=== PATIENT | male | born 1960 | race Hispanic/Latino ===

== ENCOUNTER 2019-01-08 23:30 | Inpatient (IN) | payer OTHER ==
[~2019-01-08] VITALS: Ht 157.5 cm; Wt 82.8 kg
[~2019-01-08 23:30] MED LIST: CALCIUM CHLORIDE 100 MG/ML 10 ML SYG IVP ONE; HEPARIN SODIUM 10000 UNIT/ML 1ML VIAL IJ ONE; PHENYLEPHRINE HCL 10 MG/ML 1ML VIAL IV ONE
[2019-01-08] MEDS ORDERED: SODIUM CHLORIDE 0.9% 1000ML 1,000 ML IV ONE (23:50)
[2019-01-08] MEDS ORDERED: ASPIRIN 325 MG TABLET ONE (23:50)
[2019-01-09] LABS: BASOPHILS % (AUTO) 0.8 % (0.0-5.0); EOSINOPHILS % (AUTO) 1.4 % (0.0-8.0); HEMATOCRIT 42.8 % (42-54); LYMPHOCYTES % (AUTO) 35.8 % (21.0-51.0); MEAN CORPUSCULAR HEMOGLOBIN 29.4 pg (27.0-33.0); MEAN CORPUSCULAR HGB CONC 32.8 g/dL (32.0-36.0); MEAN CORPUSCULAR VOLUME 89.4 fL (79-99); MONOCYTES % (AUTO) 14.4 % (3.0-13.0); NEUTROPHILS % (AUTO) 47.6 % (40.0-77.0); NUCLEATED RED BLOOD CELLS 0.1 % (0.0-0.19); PLATELET COUNT (AUTO) 148 K/uL (130-400); RED BLOOD CELL COUNT(AUTO) 4.79 MIL/uL (4.50-6.20); RED CELL DISTRIBUTION WIDTH 13.5 % (11.0-15.5); WHITE BLOOD COUNT (AUTO) 4.3 K/uL (4.8-10.8)
[2019-01-09 00:11] LABS: POTASSIUM 4.2 mmol/L (3.5-5.1)
[2019-01-09 00:15] LABS: ALBUMIN 3.6 g/dL (3.5-5.0); BILIRUBIN,TOTAL 0.7 mg/dL (0.2-1.0); TOTAL PROTEIN, SERUM 8.1 g/dL (6.0-8.3)
[2019-01-09 00:25] LABS: INR 1.02 (0.85-1.15); PARTIAL THROMBOPLASTIN TIME 25.8 SEC (26.3-35.5); PROTHROMBIN TIME 10.7 SEC (9.6-11.6)
[2019-01-09 00:33] LABS: MAGNESIUM 1.8 mg/dL (1.80-2.40); PHOSPHORUS 3.5 mg/dL (2.5-4.9)
[2019-01-09] MEDS ORDERED: IOHEXOL 350 MG/ML 100ML INFUS..BTL IV ONE (01:29)
[2019-01-09] MEDS: SODIUM CHLORIDE 0.9% 1000ML 1,000 ML IV SCH ×3 (03:08→21:04)
[2019-01-09] MEDS ORDERED: NITROGLYCERIN 0.4 MG SL TAB SL PRN (03:15)
[2019-01-09] MEDS ORDERED: ACETAMINOPHEN 325 MG TAB PO PRN ×2 (03:15)
[2019-01-09] MEDS ORDERED: GLUCAGON 1MG KIT 1 MG ML IM PRN (03:15)
[2019-01-09] MEDS ORDERED: ONDANSETRON HCL 4 MG/2 ML VIAL IV PRN (03:15)
[2019-01-09] MEDS ORDERED: DEXTROSE 50%-WATER 50 ML DISP.SYRIN IV PRN (03:15)
[2019-01-09] MEDS ORDERED: ENOXAPARIN SODIUM 40 MG/0.4 ML SYRINGE SQ ONE (03:41)
[2019-01-09] MEDS ORDERED: POTASSIUM CHLORIDE 10% ELIXIR 20 MEQ/15 ML UDCUP PO PRN (03:45)
[2019-01-09] MEDS ORDERED: MAGNESIUM 2GM PREMIX 50ML 50 ML IV PRN (03:45)
[2019-01-09] MEDS ORDERED: LIDOCAINE HCL-MPF 1% 2ML VIAL IVP PRN (03:45)
[2019-01-09] MEDS ORDERED: POTASSIUM CHLORIDE 20MEQ/100ML 100 ML IV PRN (03:45)
[2019-01-09] MEDS ORDERED: IPRATROPIUM/ALBUTEROL SULFATE 3 ML SOLUTION IH ONE ×3 (06:13→14:23)
[2019-01-09 06:44] LABS: BASOPHILS % (AUTO) 0.5 % (0.0-5.0); EOSINOPHILS % (AUTO) 1.1 % (0.0-8.0); HEMATOCRIT 40.7 % (42-54); LYMPHOCYTES % (AUTO) 47.9 % (21.0-51.0); MEAN CORPUSCULAR HEMOGLOBIN 29.2 pg (27.0-33.0); MEAN CORPUSCULAR VOLUME 88.7 fL (79-99); MONOCYTES % (AUTO) 12.8 % (3.0-13.0); NEUTROPHILS % (AUTO) 37.7 % (40.0-77.0); NUCLEATED RED BLOOD CELLS 0.1 % (0.0-0.19); PLATELET COUNT (AUTO) 132 K/uL (130-400); RED BLOOD CELL COUNT(AUTO) 4.59 MIL/uL (4.50-6.20); RED CELL DISTRIBUTION WIDTH 14.1 % (11.0-15.5); WHITE BLOOD COUNT (AUTO) 3.5 K/uL (4.8-10.8)
[2019-01-09 06:54] LABS: APPEARANCE,URINE Clear (CLEAR); BILIRUBIN,URINE Negative (NEGATIVE); COLOR,URINE Dark Yellow (YELLOW); GLUCOSE, URINE (UA) Negative (NEGATIVE); KETONES,URINE Trace mg/dL (NEGATIVE); LEUKOCYTE ESTERASE ,URINE Negative (NEGATIVE); NITRATE,URINE Negative (NEGATIVE); OCCULT BLOOD,URINE Negative (NEGATIVE); PROTEIN,URINE POS 2+ (NEGATIVE)
[2019-01-09 07:01] LABS: AMPHET/METH SCREEN,URINE NEGATIVE (NEGATIVE); BARBITURATE SCREEN, URINE NEGATIVE (NEGATIVE); BENZODIAZEPINES SCREEN,URINE NEGATIVE (NEGATIVE); CANNABINOID SCREEN,URINE NEGATIVE (NEGATIVE); COCAINE SCREEN,URINE NEGATIVE (NEGATIVE); OPIATE SCREEN,URINE NEGATIVE (NEGATIVE); PHENCYCLIDINE SCREEN,URINE NEGATIVE (NEGATIVE)
[2019-01-09 07:02] LABS: RBC,URINE 0-1 /HPF (0-1); WBC,URINE 0-1 /HPF (0-1)
[2019-01-09 07:03] LABS: BACTERIA,URINE Rare /HPF (None Seen); MUCUS,URINE Few LPF (None Seen); SQUAMOUS EPITHELIAL CELL,UR Rare /HPF (0-2)
[2019-01-09 07:08] LABS: ALBUMIN 3.2 g/dL (3.5-5.0); BILIRUBIN,TOTAL 0.6 mg/dL (0.2-1.0); CREATININE 0.8 mg/dL (0.5-1.5); MAGNESIUM 1.8 mg/dL (1.80-2.40); POTASSIUM 3.4 mmol/L (3.5-5.1); TOTAL PROTEIN, SERUM 7.2 g/dL (6.0-8.3); TROPONIN I 0.44 ng/mL (0.00-0.06)
[2019-01-09 07:14] LABS: HEMOGLOBIN A1C 7.7 % (4.0-6.0)
[2019-01-09] MEDS: INSULIN HUMULIN R 100 UNIT/ML 3ML SQ SCH ×4 (07:30→21:00)
[2019-01-09] MEDS ORDERED: ENOXAPARIN SODIUM 30 MG/0.3 ML SQ ONE (08:39)
[2019-01-09] MEDS ORDERED: ASPIRIN 325 MG TABLET ONE (08:39)
[2019-01-09] MEDS ORDERED: FAMOTIDINE 20MG TAB 20 MG TAB ONE (08:39)
[2019-01-09] MEDS ORDERED: POTASSIUM CHLORIDE 20 MEQ ERTAB PO ONE ×2 (08:39→13:53)
[2019-01-09] MEDS ORDERED: MAGNESIUM 2GM PREMIX 50ML 50 ML IV ONE (08:40)
[2019-01-09] MEDS: ASPIRIN 325 MG TABLET PO SCH (09:00)
[2019-01-09] MEDS: ENOXAPARIN SODIUM 30 MG/0.3 ML SQ SCH (09:00)
[2019-01-09] MEDS: FAMOTIDINE 20MG TAB 20 MG TAB PO SCH ×2 (09:00→21:01)
[2019-01-09] MEDS: IPRATROPIUM/ALBUTEROL SULFATE 3 ML SOLUTION IH SCH ×4 (09:50→21:29)
[2019-01-09] MEDS ORDERED: AMOX500C2 PO (10:16)
[2019-01-09] MEDS ORDERED: METF-445 PO (10:16)
[2019-01-09] MEDS ORDERED: GUAI177L20 PO (10:16)
[2019-01-09 11:51] LABS: TROPONIN I 0.38 ng/mL (0.00-0.06)
[2019-01-09 15:20] VITALS: BP 124/72
[2019-01-09 19:00] VITALS: BP_SYST 111; BP_SYST 113; BP_SYST 115; BP_DIAS 69; BP_DIAS 79; BP_DIAS 80
[2019-01-09 23:00] VITALS: BP 91/47
[2019-01-10] MEDS: IPRATROPIUM/ALBUTEROL SULFATE 3 ML SOLUTION IH SCH ×6 (01:37→21:53)
[2019-01-10 03:00] VITALS: BP 120/68
[2019-01-10 05:13] LABS: BASOPHILS % (AUTO) 0.6 % (0.0-5.0); EOSINOPHILS % (AUTO) 0.3 % (0.0-8.0); HEMATOCRIT 38.4 % (42-54); LYMPHOCYTES % (AUTO) 33.9 % (21.0-51.0); MEAN CORPUSCULAR HEMOGLOBIN 29.6 pg (27.0-33.0); MEAN CORPUSCULAR HGB CONC 33.5 g/dL (32.0-36.0); MEAN CORPUSCULAR VOLUME 88.6 fL (79-99); MONOCYTES % (AUTO) 10.9 % (3.0-13.0); NEUTROPHILS % (AUTO) 54.3 % (40.0-77.0); PLATELET COUNT (AUTO) 139 K/uL (130-400); RED BLOOD CELL COUNT(AUTO) 4.33 MIL/uL (4.50-6.20); RED CELL DISTRIBUTION WIDTH 14.2 % (11.0-15.5); WHITE BLOOD COUNT (AUTO) 5.1 K/uL (4.8-10.8)
[2019-01-10 05:30] LABS: BILIRUBIN,TOTAL 0.7 mg/dL (0.2-1.0); CREATININE 0.8 mg/dL (0.5-1.5); POTASSIUM 3.7 mmol/L (3.5-5.1); TOTAL PROTEIN, SERUM 6.9 g/dL (6.0-8.3)
[2019-01-10] MEDS: INSULIN HUMULIN R 100 UNIT/ML 3ML SQ SCH ×4 (06:24→21:00)
[2019-01-10 08:00] VITALS: BP 110/67
[2019-01-10] MEDS: ASPIRIN 325 MG TABLET PO SCH (09:22)
[2019-01-10] MEDS: FAMOTIDINE 20MG TAB 20 MG TAB PO SCH ×2 (09:23→22:17)
[2019-01-10] MEDS: ENOXAPARIN SODIUM 30 MG/0.3 ML SQ SCH (09:23)
[2019-01-10 12:00] VITALS: BP_SYST 109; BP_SYST 111; BP_SYST 113; BP_DIAS 70; BP_DIAS 73; BP_DIAS 75
--- NOTE | 2019-01-10 13:54 | NUR ---
DC PLAN VISITED WITH PATIENT. PATIENT LIVES WITH SPOUSE. INDEPENDENT ABLE TO PERFORM ADL'S. PATIENT HAS NO SERVICES OR DME'S. FEELS SAFE TO RETURN HOME. Addendum: 01/10/19 at 1356 by NGOC RENDON RN CM Amended: Links added.
[2019-01-10 16:00] VITALS: BP 113/73
[2019-01-10] MEDS: AZITHROMYCIN 500MG+NS 250ML 250 ML IV SCH (16:02)
[2019-01-10] MEDS: OSELTAMIVIR PHOSPHATE 75 MG CAP PO SCH ×2 (16:02→22:17)
[2019-01-10] MEDS: ISOSORBIDE MONO 30MG TAB SR PO SCH (18:03)
[2019-01-10 19:20] VITALS: BP 128/77
[2019-01-10 19:22] VITALS: BP 128/77
[2019-01-10] MEDS: ATORVASTATIN CALCIUM 10 MG TABLET PO SCH (22:16)
[2019-01-11] VITALS (7 sets, daily range): BP systolic 95–139; BP diastolic 51–78
[2019-01-11] MEDS: IPRATROPIUM/ALBUTEROL SULFATE 3 ML SOLUTION IH SCH ×6 (01:16→21:35)
[2019-01-11 04:26] LABS: MEAN CORPUSCULAR HEMOGLOBIN 29.3 pg (27.0-33.0); MEAN CORPUSCULAR HGB CONC 32.9 g/dL (32.0-36.0); PLATELET COUNT (AUTO) 133 K/uL (130-400); RED BLOOD CELL COUNT(AUTO) 4.27 MIL/uL (4.50-6.20); RED CELL DISTRIBUTION WIDTH 13.8 % (11.0-15.5); WHITE BLOOD COUNT (AUTO) 5.6 K/uL (4.8-10.8)
[2019-01-11 04:39] LABS: ALBUMIN 2.8 g/dL (3.5-5.0); BILIRUBIN,TOTAL 0.7 mg/dL (0.2-1.0); CREATININE 0.9 mg/dL (0.5-1.5); POTASSIUM 3.3 mmol/L (3.5-5.1); TOTAL PROTEIN, SERUM 6.5 g/dL (6.0-8.3)
[2019-01-11] MEDS: INSULIN HUMULIN R 100 UNIT/ML 3ML SQ SCH ×4 (06:11→21:00)
[2019-01-11] MEDS ORDERED: ASPIRIN 325 MG TABLET PO SCH (09:00)
[2019-01-11] MEDS: CLOPIDOGREL BISULFATE 75 MG TAB PO SCH (09:25)
[2019-01-11] MEDS: ASPIRIN 81MG TAB.CHEW PO SCH (09:25)
[2019-01-11] MEDS: OSELTAMIVIR PHOSPHATE 75 MG CAP PO SCH ×3 (09:25→21:13)
[2019-01-11] MEDS: ISOSORBIDE MONO 30MG TAB SR PO SCH (09:26)
[2019-01-11] MEDS: FAMOTIDINE 20MG TAB 20 MG TAB PO SCH ×2 (09:26→21:11)
[2019-01-11] MEDS: ENOXAPARIN SODIUM 30 MG/0.3 ML SQ SCH (09:27)
[2019-01-11] MEDS: LISINOPRIL 5 MG TABLET PO SCH (13:19)
[2019-01-11] MEDS: CARVEDILOL 3.125 MG TABLET PO SCH ×2 (13:20→21:12)
[2019-01-11] MEDS: FUROSEMIDE 10 MG/ML 2ML VIAL IV SCH ×2 (13:21→21:12)
[2019-01-11] MEDS: SPIRONOLACTONE 25 MG TAB PO SCH (13:21)
[2019-01-11] MEDS: AZITHROMYCIN 500MG+NS 250ML 250 ML IV SCH (13:23)
--- NOTE | 2019-01-11 16:15 | NUR ---
[facility] Order received for [facility] [employer] @ [place]. Spoke w pt regarding MD recommendations. CROW/PC consents signed. Clinical and order faxed to Radha, call placed to Seema Carrero rep. pending call back.
[2019-01-11] MEDS: ATORVASTATIN CALCIUM 10 MG TABLET PO SCH (21:13)
[2019-01-12 00:51] VITALS: BP 97/69
[2019-01-12] MEDS: IPRATROPIUM/ALBUTEROL SULFATE 3 ML SOLUTION IH SCH ×6 (02:15→22:04)
[2019-01-12 04:40] VITALS: BP 99/67
[2019-01-12] MEDS: INSULIN HUMULIN R 100 UNIT/ML 3ML SQ SCH ×4 (07:30→21:00)
[2019-01-12 08:00] VITALS: BP 105/66
[2019-01-12 08:26] LABS: HEMATOCRIT 41.7 % (42-54); MEAN CORPUSCULAR HEMOGLOBIN 29.3 pg (27.0-33.0); MEAN CORPUSCULAR HGB CONC 33.3 g/dL (32.0-36.0); MEAN CORPUSCULAR VOLUME 88.2 fL (79-99); PLATELET COUNT (AUTO) 176 K/uL (130-400); RED BLOOD CELL COUNT(AUTO) 4.73 MIL/uL (4.50-6.20); RED CELL DISTRIBUTION WIDTH 13.8 % (11.0-15.5); WHITE BLOOD COUNT (AUTO) 6.2 K/uL (4.8-10.8)
[2019-01-12] MEDS: ISOSORBIDE MONO 30MG TAB SR PO SCH (08:32)
[2019-01-12] MEDS: FAMOTIDINE 20MG TAB 20 MG TAB PO SCH ×2 (08:32→21:33)
[2019-01-12] MEDS: CARVEDILOL 3.125 MG TABLET PO SCH ×2 (08:32→21:33)
[2019-01-12] MEDS: ASPIRIN 81MG TAB.CHEW PO SCH (08:32)
[2019-01-12] MEDS: LISINOPRIL 5 MG TABLET PO SCH (08:32)
[2019-01-12] MEDS: ENOXAPARIN SODIUM 30 MG/0.3 ML SQ SCH (08:33)
[2019-01-12] MEDS: OSELTAMIVIR PHOSPHATE 75 MG CAP PO SCH ×3 (08:33→21:33)
[2019-01-12] MEDS: CLOPIDOGREL BISULFATE 75 MG TAB PO SCH (08:33)
[2019-01-12 08:49] LABS: CREATININE 0.7 mg/dL (0.5-1.5); POTASSIUM 3.5 mmol/L (3.5-5.1)
--- NOTE | 2019-01-12 10:34 | NUR ---
[employer] UPDATE Received callback from Seema patel for [employer]. She mentions that since pt is self pay, he would have to give a $500.00 down payment for rental. Per Seema she will call pt to discuss. Primary nurse updated. Will continue to follow. Pt is scheduled for [facility] tomorrow.
[2019-01-12 12:00] VITALS: BP 97/58
[2019-01-12] MEDS: SPIRONOLACTONE 25 MG TAB PO SCH (12:20)
[2019-01-12 16:00] VITALS: BP 111/70
[2019-01-12] MEDS: AZITHROMYCIN 250 MG TABLET PO SCH (17:05)
[2019-01-12 19:30] VITALS: BP 97/61
[2019-01-12] MEDS: ATORVASTATIN CALCIUM 10 MG TABLET PO SCH (21:33)
[2019-01-12] MEDS: POTASSIUM CHLORIDE 20 MEQ ERTAB PO PRN ×2 (21:44→23:35)
[2019-01-13] VITALS (11 sets, daily range): BP systolic 99–120; BP diastolic 56–83
[2019-01-13] MEDS: IPRATROPIUM/ALBUTEROL SULFATE 3 ML SOLUTION IH SCH ×6 (01:58→22:01)
[2019-01-13] MEDS: INSULIN HUMULIN R 100 UNIT/ML 3ML SQ SCH ×4 (05:57→20:52)
[2019-01-13 06:25] LABS: CREATININE 0.8 mg/dL (0.5-1.5); POTASSIUM 3.8 mmol/L (3.5-5.1)
[2019-01-13 06:38] LABS: INR 0.99 (0.85-1.15); PARTIAL THROMBOPLASTIN TIME 29.5 SEC (26.3-35.5); PROTHROMBIN TIME 10.4 SEC (9.6-11.6)
[2019-01-13 06:41] LABS: B-TYPE NATRIURETIC PEPTIDE 1320 pg/mL (0-100)
[2019-01-13] MEDS ORDERED: BIVALIRUDIN 250 MG/VIAL IV ONE (07:22)
[2019-01-13] MEDS ORDERED: IOHEXOL-350 50ML VIAL IV ONE (07:23)
[2019-01-13] MEDS ORDERED: IOHEXOL 350 MG/ML 100ML INFUS..BTL IV ONE (07:23)
[2019-01-13] MEDS ORDERED: NITROGLYCERIN 5 MG/ML 10 ML VIAL IV ONE (07:23)
[2019-01-13] MEDS ORDERED: LIDOCAINE HCL 2% 20ML ONE (07:24)
[2019-01-13] MEDS ORDERED: MIDAZOLAM HCL 1 MG/ML 2ML VIAL ONE (08:16)
[2019-01-13] MEDS: SPIRONOLACTONE 25 MG TAB PO SCH (08:28)
[2019-01-13] MEDS: OSELTAMIVIR PHOSPHATE 75 MG CAP PO SCH ×3 (08:28→21:41)
[2019-01-13 08:50] LABS: BASOPHILS % (AUTO) 0.3 % (0.0-5.0); EOSINOPHILS % (AUTO) 2.6 % (0.0-8.0); HEMATOCRIT 41.6 % (42-54); LYMPHOCYTES % (AUTO) 41.3 % (21.0-51.0); MEAN CORPUSCULAR HEMOGLOBIN 29.7 pg (27.0-33.0); MEAN CORPUSCULAR HGB CONC 33.5 g/dL (32.0-36.0); MEAN CORPUSCULAR VOLUME 88.6 fL (79-99); MONOCYTES % (AUTO) 11.6 % (3.0-13.0); NEUTROPHILS % (AUTO) 44.2 % (40.0-77.0); NUCLEATED RED BLOOD CELLS 0.1 % (0.0-0.19); PLATELET COUNT (AUTO) 190 K/uL (130-400); RED CELL DISTRIBUTION WIDTH 13.9 % (11.0-15.5); WHITE BLOOD COUNT (AUTO) 6.2 K/uL (4.8-10.8)
[2019-01-13] MEDS ORDERED: FUROSEMIDE 10 MG/ML 2ML VIAL ONE (08:53)
[2019-01-13] MEDS: CARVEDILOL 6.25 MG TABLET PO SCH ×2 (09:00→21:41)
[2019-01-13] MEDS: ASPIRIN 81MG TAB.CHEW PO SCH (09:00)
[2019-01-13] MEDS: FUROSEMIDE 20 MG TABLET PO SCH (09:00)
[2019-01-13] MEDS: FAMOTIDINE 20MG TAB 20 MG TAB PO SCH ×2 (09:00→21:42)
[2019-01-13] MEDS: LISINOPRIL 5 MG TABLET PO SCH (09:00)
[2019-01-13] MEDS: ISOSORBIDE MONO 30MG TAB SR PO SCH (09:00)
--- NOTE | 2019-01-13 09:30 | NUR ---
PATIENT RETURNED FROM [facility]. AWAKE AND ALERT, VOICES NO COMPLAINTS. RIGHT PERCLOSE TO GROIN - CLEAN DRY AND INTACT. NO SIGNS AND SYMPTOMS OF BLEEDING NOTED. NO PAIN OR DISCOMFORT. POSITIVE PULSES TO LOWER EXTREMITIES
[2019-01-13] MEDS ORDERED: AZITHROMYCIN 500MG+NS 250ML 250 ML IV SCH (10:00)
[2019-01-13] MEDS: AZITHROMYCIN 250 MG TABLET PO SCH (11:37)
[2019-01-13] MEDS: POTASSIUM CHLORIDE 20 MEQ ERTAB PO SCH ×2 (11:37→21:41)
--- NOTE | 2019-01-13 20:00 | NUR ---
ANXIOUS Pt is anxious,awaiting for Dr Rivas to round.Pt has questions re surgical options.Pt denies chest pain or sob.
[2019-01-13] MEDS: ATORVASTATIN CALCIUM 10 MG TABLET PO SCH (21:41)
--- NOTE | 2019-01-13 21:52 | NUR ---
OBEY gomez,pt wants medicine for his cough.
[2019-01-13] MEDS: GUAIFENESIN-CODEINE 5 ML SYRUP PO PRN (22:55)
--- NOTE | 2019-01-13 22:59 | NUR ---
COUGH Pt medicated with Guiafenessin with Codeine for cough.
--- NOTE | 2019-01-14 01:00 | NUR ---
MED EFFECT Pt was able to sleep well.
[2019-01-14] MEDS: IPRATROPIUM/ALBUTEROL SULFATE 3 ML SOLUTION IH SCH ×6 (01:38→22:32)
[2019-01-14 03:00] VITALS: BP 109/61
[2019-01-14 05:14] LABS: HEMATOCRIT 40.6 % (42-54); MEAN CORPUSCULAR HEMOGLOBIN 29.6 pg (27.0-33.0); MEAN CORPUSCULAR HGB CONC 33.5 g/dL (32.0-36.0); MEAN CORPUSCULAR VOLUME 88.4 fL (79-99); PLATELET COUNT (AUTO) 236 K/uL (130-400); RED BLOOD CELL COUNT(AUTO) 4.59 MIL/uL (4.50-6.20); RED CELL DISTRIBUTION WIDTH 13.5 % (11.0-15.5); WHITE BLOOD COUNT (AUTO) 8.4 K/uL (4.8-10.8)
[2019-01-14 05:27] LABS: CREATININE 0.8 mg/dL (0.5-1.5); POTASSIUM 3.7 mmol/L (3.5-5.1)
[2019-01-14] MEDS: INSULIN HUMULIN R 100 UNIT/ML 3ML SQ SCH ×4 (06:11→20:29)
[2019-01-14] MEDS: OSELTAMIVIR PHOSPHATE 75 MG CAP PO SCH ×3 (07:23→20:27)
[2019-01-14 08:10] VITALS: BP 103/69
[2019-01-14] MEDS: FAMOTIDINE 20MG TAB 20 MG TAB PO SCH ×2 (09:26→20:27)
[2019-01-14] MEDS: FUROSEMIDE 20 MG TABLET PO SCH (09:26)
[2019-01-14] MEDS: ISOSORBIDE MONO 30MG TAB SR PO SCH (09:27)
[2019-01-14] MEDS: CARVEDILOL 6.25 MG TABLET PO SCH ×2 (09:28→20:28)
[2019-01-14] MEDS: LISINOPRIL 5 MG TABLET PO SCH (09:29)
[2019-01-14] MEDS: ASPIRIN 81MG TAB.CHEW PO SCH (09:29)
[2019-01-14] MEDS: POTASSIUM CHLORIDE 20 MEQ ERTAB PO SCH ×2 (09:29→20:27)
[2019-01-14] MEDS: SPIRONOLACTONE 25 MG TAB PO SCH (09:33)
[2019-01-14] MEDS: GUAIFENESIN-CODEINE 5 ML SYRUP PO PRN ×2 (09:45→20:33)
[2019-01-14 11:33] VITALS: BP 99/59
[2019-01-14] MEDS: AZITHROMYCIN 250 MG TABLET PO SCH (12:29)
[2019-01-14] MEDS: ENOXAPARIN SODIUM 40 MG/0.4 ML SYRINGE SQ SCH (12:31)
--- NOTE | 2019-01-14 16:22 | NUR ---
Nutrition intervention: Nutrition notification for LOS x6. Currently on CCD 75gm diet with 100% intake. Pt admitted for syncope. Pt s/p Left heart cath. Heart healthy diet education pending. [facility] 01/13. Recommendations: Diet modification to heart healthy diet for appropriate diet placement. Addendum: 01/14/19 at [address] Amended: Links added.
[2019-01-14 16:27] VITALS: BP 93/53
[2019-01-14 19:00] VITALS: BP 98/58
[2019-01-14] MEDS: ATORVASTATIN CALCIUM 10 MG TABLET PO SCH (20:27)
[2019-01-14 23:00] VITALS: BP 110/71
[2019-01-15] MEDS: IPRATROPIUM/ALBUTEROL SULFATE 3 ML SOLUTION IH SCH ×2 (02:33→07:07)
[2019-01-15 03:00] VITALS: BP 111/51
--- NOTE | 2019-01-15 03:25 | NUR ---
SLEEP Pt resting quietly in bed,respirations even and unlabored.
[2019-01-15] MEDS: GUAIFENESIN-CODEINE 5 ML SYRUP PO PRN ×3 (04:13→23:08)
[2019-01-15 07:00] VITALS: BP 97/61
[2019-01-15] MEDS: INSULIN HUMULIN R 100 UNIT/ML 3ML SQ SCH ×2 (07:30→22:30)
--- NOTE | 2019-01-15 08:15 | NUR ---
DR. MORGAN IN TO SEE PT. MEDICATIONS ADJUSTMENTS MADE.
[2019-01-15] MEDS: ENOXAPARIN SODIUM 40 MG/0.4 ML SYRINGE SQ SCH ×2 (09:00→11:49)
[2019-01-15] MEDS: OSELTAMIVIR PHOSPHATE 75 MG CAP PO SCH (09:30)
[2019-01-15] MEDS: FUROSEMIDE 20 MG TABLET PO SCH (09:30)
[2019-01-15] MEDS: POTASSIUM CHLORIDE 20 MEQ ERTAB PO SCH ×2 (09:32→22:17)
[2019-01-15] MEDS: ISOSORBIDE MONO 30MG TAB SR PO SCH (09:33)
[2019-01-15] MEDS: CARVEDILOL 3.125 MG TABLET PO SCH ×2 (09:33→22:16)
[2019-01-15] MEDS: ASPIRIN 81MG TAB.CHEW PO SCH (09:33)
[2019-01-15] MEDS: LISINOPRIL 2.5 MG TABLET PO SCH (09:34)
[2019-01-15 11:00] VITALS: BP 105/62
[2019-01-15] MEDS: AZITHROMYCIN 250 MG TABLET PO SCH (11:46)
[2019-01-15] MEDS: SPIRONOLACTONE 25 MG TAB PO SCH (11:46)
[2019-01-15] MEDS: FAMOTIDINE 20MG TAB 20 MG TAB PO SCH ×2 (11:46→22:16)
[2019-01-15 16:00] VITALS: BP 108/71
[2019-01-15 19:00] VITALS: BP 106/70
[2019-01-15] MEDS: ATORVASTATIN CALCIUM 10 MG TABLET PO SCH (22:16)
[2019-01-16] VITALS: BP 121/74
[2019-01-16 04:00] VITALS: BP 98/69
[2019-01-16] MEDS: INSULIN HUMULIN R 100 UNIT/ML 3ML SQ SCH ×4 (05:43→21:00)
[2019-01-16 07:00] VITALS: BP 103/72
[2019-01-16] MEDS: BENZONATATE 100 MG CAPSULE PO SCH ×2 (09:56→17:25)
[2019-01-16] MEDS: FAMOTIDINE 20MG TAB 20 MG TAB PO SCH ×2 (09:57→21:00)
[2019-01-16] MEDS: CARVEDILOL 3.125 MG TABLET PO SCH ×2 (09:57→21:01)
[2019-01-16] MEDS: POTASSIUM CHLORIDE 20 MEQ ERTAB PO SCH ×2 (09:58→21:00)
[2019-01-16] MEDS: FUROSEMIDE 20 MG TABLET PO SCH (09:59)
[2019-01-16] MEDS: ISOSORBIDE MONO 30MG TAB SR PO SCH (09:59)
[2019-01-16] MEDS: LISINOPRIL 2.5 MG TABLET PO SCH (10:00)
[2019-01-16] MEDS: ASPIRIN 81MG TAB.CHEW PO SCH (10:00)
[2019-01-16] MEDS: ENOXAPARIN SODIUM 40 MG/0.4 ML SYRINGE SQ SCH (10:01)
[2019-01-16] MEDS: SPIRONOLACTONE 25 MG TAB PO SCH (10:15)
[2019-01-16 11:00] VITALS: BP 93/58
[2019-01-16] MEDS: AZITHROMYCIN 250 MG TABLET PO SCH (11:02)
[2019-01-16] MEDS: GUAIFENESIN-CODEINE 5 ML SYRUP PO PRN (14:43)
[2019-01-16 16:00] VITALS: BP 99/61
--- NOTE | 2019-01-16 17:01 | NUR ---
CM PLAN OF CARE, DC PLAN, ETC SPOKE TO PATIENT RE: PLAN OF CARE. PATIENT READY TO SIGN CONSENT OR CABG . HE STATES HE WAS TOLD BY DR. ALDRIDGE THAT CABG WILL BE DONE TOMORROW. ADVISED PRIMARY RN MARY ALICE ORDER FOR LIFE VEST ARRANGEMENTS . WILL DEFER ARRANGEMENT UNTIL AFTER ANY SURGERY
[2019-01-16 19:00] VITALS: BP 103/75
[2019-01-16] MEDS: ATORVASTATIN CALCIUM 10 MG TABLET PO SCH (21:00)
[2019-01-16 22:00] LABS: ABG BASE EXCESS 3.2 mmol/L (-2.0-3.0); ABG OXYGEN SATURATION 96.7 % (95.0-99.0); ABG PCO2 39 mmHg (35-48)
[2019-01-16 22:15] LABS: HEMATOCRIT 43.1 % (42-54); MEAN CORPUSCULAR HEMOGLOBIN 29.6 pg (27.0-33.0); MEAN CORPUSCULAR HGB CONC 33.7 g/dL (32.0-36.0); MEAN CORPUSCULAR VOLUME 87.9 fL (79-99); PLATELET COUNT (AUTO) 300 K/uL (130-400); RED BLOOD CELL COUNT(AUTO) 4.91 MIL/uL (4.50-6.20); RED CELL DISTRIBUTION WIDTH 13.9 % (11.0-15.5); WHITE BLOOD COUNT (AUTO) 7.9 K/uL (4.8-10.8)
[2019-01-16 22:25] LABS: CREATININE 0.8 mg/dL (0.5-1.5); POTASSIUM 4.1 mmol/L (3.5-5.1)
[2019-01-16 22:29] LABS: INR 1.01 (0.85-1.15); PARTIAL THROMBOPLASTIN TIME 29.3 SEC (26.3-35.5); PROTHROMBIN TIME 10.6 SEC (9.6-11.6)
[2019-01-17] VITALS (25 sets, daily range): BP systolic 52–144; BP diastolic 36–82
[2019-01-17] MEDS: BENZONATATE 100 MG CAPSULE PO SCH ×4 (00:25→17:29)
[2019-01-17] MEDS: INSULIN HUMULIN R 100 UNIT/ML 3ML SQ SCH (04:07)
[2019-01-17] MEDS ORDERED: CEFAZOLIN SODIUM 1 GM VIAL IVP PRN (07:00)
[2019-01-17] MEDS ORDERED: BACITRACIN 50,000 UNIT VIAL ONE (07:39)
[2019-01-17] MEDS ORDERED: PAPAVERINE HCL 30 MG/ML 2ML VIAL ONE (07:39)
--- NOTE | 2019-01-17 07:40 | NUR ---
PATIENT TRANSFERRED TO OR PROCEDURE. PATIENT AWAKE AND ALERT, VOICES NO COMPLAINT AT THIS TIME.
[2019-01-17] MEDS ORDERED: EPINEPHRINE 1 MG/ML 30ML VIAL IJ ONE (07:45)
[2019-01-17] MEDS ORDERED: THROMBIN-JMI 5000 UNIT/VIAL TP ONE (07:58)
[2019-01-17] MEDS ORDERED: EPINEPHRINE 1 MG/ML AMPULE ONE (08:07)
[2019-01-17] MEDS ORDERED: AMINOCAPROIC ACID 250 MG/ML 20 ML VIAL IV ONE (08:07)
[2019-01-17] MEDS ORDERED: HEPARIN SODIUM 1000UNIT/ML 10ML VIAL ONE (08:07)
[2019-01-17] MEDS ORDERED: ESMOLOL HCL 10 MG/ML 10 ML VIAL ONE (08:07)
[2019-01-17] MEDS ORDERED: PROTAMINE SULFATE 10 MG/ML 25ML VIAL IV ONE (08:07)
[2019-01-17] MEDS ORDERED: MIDAZOLAM HCL 1 MG/ML 5ML VIAL ONE (08:07)
[2019-01-17] MEDS ORDERED: NOREPINEPHRINE BITARTRATE 1 MG/1 ML ML IV ONE (08:07)
[2019-01-17] MEDS ORDERED: PROPOFOL 10 MG/ML 20ML VIAL IV ONE (08:07)
[2019-01-17] MEDS ORDERED: NITROGLYCERIN 50 MG/D5% WATER 1 BOT ONE (08:07)
[2019-01-17] MEDS ORDERED: ROCURONIUM 10MG/1ML SYR 10 MG/ML ML ONE (08:07)
[2019-01-17] MEDS ORDERED: SODIUM BICARB 50MEQ 50ML VIAL ONE (08:07)
[2019-01-17] MEDS ORDERED: FENTANYL CITRATE PF 50 MCG/1 ML 20ML VIAL IJ ONE (08:07)
[2019-01-17] MEDS ORDERED: LIDOCAINE PF 2% 5ML ABBOJECT ONE (08:07)
[2019-01-17] MEDS ORDERED: KETAMINE 50MG/ML SYRINGE 50 MG/ML DISP.SYRIN IV ONE (08:08)
[2019-01-17] MEDS ORDERED: CEFUROXIME SODIUM 1.5 GM VIAL ONE (08:15)
[2019-01-17] MEDS ORDERED: SODIUM CHLORIDE 0.9% 500ML 500 ML IV SCH (08:56)
[2019-01-17] MEDS ORDERED: AMINOCAPROIC ACID 15,000 MG in SODIUM CHLORIDE 0.9% 250 ML IV SCH (09:00)
[2019-01-17] MEDS ORDERED: NICARDIPINE HCL 100 MG in SODIUM CHLORIDE 0.9% 60 ML IV PRN (09:00)
[2019-01-17] MEDS ORDERED: ACETAMINOPHEN 650 MG SUPPOSITORY RC PRN (09:00)
[2019-01-17] MEDS ORDERED: MAGNESIUM 2GM PREMIX 50ML 50 ML IV PRN (09:00)
[2019-01-17] MEDS ORDERED: SODIUM CHLORIDE 0.9% 250 ML IV PRN (09:00)
[2019-01-17] MEDS ORDERED: POTASSIUM PHOS 15 mMOL+NS250ML 250 ML IV PRN (09:00)
[2019-01-17] MEDS ORDERED: SODIUM CHLORIDE 0.9% 10 ML VIAL IVP PRN (09:00)
[2019-01-17] MEDS ORDERED: NOREPINEPHRINE 4MG/NS 250ML 250 ML IV PRN (09:00)
[2019-01-17] MEDS ORDERED: DEXTROSE 50%-WATER 50 ML DISP.SYRIN IV PRN (09:00)
[2019-01-17] MEDS ORDERED: ACETAMINOPHEN 325 MG TAB PO PRN (09:00)
[2019-01-17] MEDS ORDERED: POTASSIUM CHLORIDE 20MEQ/100ML 100 ML IV PRN (09:00)
[2019-01-17] MEDS: ASPIRIN 325MG EC TAB 325 MG TABLET.DR PO SCH (09:00)
[2019-01-17] MEDS ORDERED: PANTOPRAZOLE 40 MG/VIAL IV SCH (09:00)
[2019-01-17] MEDS ORDERED: MORPHINE SULFATE 2 MG/ML 1ML SYG IV PRN (09:00)
[2019-01-17] MEDS ORDERED: EPINEPHRINE 2 MG in DEXTROSE 5%-WATER 250 ML IV PRN (09:00)
[2019-01-17] MEDS ORDERED: ALBUMIN (HUMAN) 5% 250 ML IV PRN (09:00)
[2019-01-17] MEDS ORDERED: GLUCAGON 1MG KIT 1 MG ML IM PRN (09:00)
[2019-01-17] MEDS ORDERED: SODIUM CHLORIDE 0.9% 1000ML 1,000 ML IV SCH (09:00)
[2019-01-17] MEDS ORDERED: NITROGLYCERIN 50 MG/D5% WATER 250 BOT IV SCH (09:00)
[2019-01-17] MEDS ORDERED: PROPOFOL 1000 MG/100 ML 100 ML IV PRN (09:00)
[2019-01-17] MEDS ORDERED: INSULIN REGULAR, HUMAN 3ML 100 UNIT in SODIUM CHLORIDE 0.9% 99 ML IV SCH ×2 (09:00)
[2019-01-17] MEDS ORDERED: SODIUM BICARB 50MEQ 50ML VIAL IV PRN (09:00)
[2019-01-17] MEDS ORDERED: MORPHINE SULFATE 4 MG/1ML SYG IV PRN (09:00)
[2019-01-17 09:58] LABS: ABG BASE EXCESS 4.3 mmol/L (-2.0-3.0); ABG HCO3 26.7 mmol/L (21.0-28.0); ABG OXYGEN SATURATION 99.4 % (95.0-99.0); ABG PCO2 33 mmHg (35-48)
[2019-01-17 10:35] LABS: ABG BASE EXCESS -0.6 mmol/L (-2.0-3.0); ABG HCO3 22.2 mmol/L (21.0-28.0); ABG OXYGEN SATURATION 99.2 % (95.0-99.0); ABG PCO2 31 mmHg (35-48)
--- NOTE | 2019-01-17 10:45 | NUR ---
PT ARRIVES FROM O.R. -SEDATED. ET TUBE INTACT -BILATERAL BREATH SOUNDS PRESENT. PULSES PRESENT. LEVOPHED DRIP AND EPINEPHRINE DRIP INFUSING.
[2019-01-17 11:18] LABS: ABG BASE EXCESS -3.4 mmol/L (-2.0-3.0); ABG PCO2 36 mmHg (35-48)
--- NOTE | 2019-01-17 11:30 | NUR ---
PT IS NOW AWAKE - RESTLESS. MEDICATED WITH MORPHINE 4MG IV PRN.
[2019-01-17] MEDS: AZITHROMYCIN 250 MG TABLET PO SCH ×2 (11:45→17:25)
--- NOTE | 2019-01-17 11:45 | NUR ---
PT IS FOLLOWING COMMANDS- EXTREMITY STRENGTH STRONG/EQUAL X 4. TROY NOTED. REORIENTED THE PATIENT TO SITUATION AND ENVIRONMENT
[2019-01-17 11:48] LABS: HEMATOCRIT 42.4 % (42-54); MEAN CORPUSCULAR HEMOGLOBIN 28.7 pg (27.0-33.0); MEAN CORPUSCULAR HGB CONC 32.6 g/dL (32.0-36.0); MEAN CORPUSCULAR VOLUME 88.1 fL (79-99); PLATELET COUNT (AUTO) 299 K/uL (130-400); RED BLOOD CELL COUNT(AUTO) 4.81 MIL/uL (4.50-6.20); RED CELL DISTRIBUTION WIDTH 13.5 % (11.0-15.5); WHITE BLOOD COUNT (AUTO) 20.1 K/uL (4.8-10.8)
[2019-01-17 12:02] LABS: INR 1.13 (0.85-1.15); PARTIAL THROMBOPLASTIN TIME 22.5 SEC (26.3-35.5); PROTHROMBIN TIME 11.8 SEC (9.6-11.6)
[2019-01-17 12:11] LABS: CREATININE 0.9 mg/dL (0.5-1.5); MAGNESIUM 1.8 mg/dL (1.80-2.40); PHOSPHORUS 4.2 mg/dL (2.5-4.9); POTASSIUM 4.4 mmol/L (3.5-5.1)
--- NOTE | 2019-01-17 13:26 | NUR ---
STILL DROWSY- WILL CONTINUE TO EVALUATE FOR VENT WEANING. DR JAVED MADE BEDSIDE ROUNDS
[2019-01-17] MEDS: CEFAZOLIN SODIUM 1 GM VIAL IV SCH ×2 (13:36→21:46)
--- NOTE | 2019-01-17 14:30 | NUR ---
PT RESTING AND COMFORTABLE. WILL LIFT HEAD OFF BED AND FOLLOWS COMMANDS. RESPIRATORY RATE ON VENT DECREASED TO 6 PER PROTOCOL.
[2019-01-17] MEDS: CALCIUM GLUCONATE 1 GM in SODIUM CHLORIDE 0.9% 50 ML IV PRN ×2 (14:45→22:37)
[2019-01-17 15:03] LABS: ABG BASE EXCESS 3.1 mmol/L (-2.0-3.0); ABG HCO3 28.3 mmol/L (21.0-28.0); ABG OXYGEN SATURATION 96.3 % (95.0-99.0); ABG PCO2 45 mmHg (35-48)
--- NOTE | 2019-01-17 15:15 | NUR ---
EXTUBATED- PER PROTOCOL. PLACED ON 40% COOL MIST MASK.
[2019-01-17 16:32] LABS: ABG BASE EXCESS 2.8 mmol/L (-2.0-3.0); ABG HCO3 27.8 mmol/L (21.0-28.0); ABG OXYGEN SATURATION 94.1 % (95.0-99.0); ABG PCO2 44 mmHg (35-48)
[2019-01-17] MEDS: TRAMADOL HCL 50 MG TABLET PO PRN (17:25)
--- NOTE | 2019-01-17 17:51 | NUR ---
PT TRANSFERRED TO ROOM 209. NOTIFIED
--- NOTE | 2019-01-17 19:14 | NUR ---
HAND OFF REPORT GIVEN TO JENNIFER GARCIA
[2019-01-17 22:22] LABS: MAGNESIUM 2.2 mg/dL (1.80-2.40); POTASSIUM 4.2 mmol/L (3.5-5.1)
[2019-01-17] MEDS ORDERED: CALCIUM GLUCONATE 1 GM/10 ML VIAL IV ONE (22:42)
[2019-01-17 23:14] LABS: ABG BASE EXCESS 0.2 mmol/L (-2.0-3.0); ABG HCO3 25.7 mmol/L (21.0-28.0); ABG OXYGEN SATURATION 92.2 % (95.0-99.0); ABG PCO2 44 mmHg (35-48)
[2019-01-17] MEDS: IPRATROPIUM/ALBUTEROL SULFATE 3 ML SOLUTION IH SCH (23:30)
--- NOTE | 2019-01-17 23:45 | NUR ---
Dr. Rivas notification Rob was notified of patient's desaturations and current abg. Order received and entered into syste At 0027 Dr. Rivas was notified of repeat abg at 0027 and was also notified of actions taken of stat xray order an conveyed results of what appeared to be Right large Pneumothorax.
[2019-01-18] VITALS (20 sets, daily range): BP systolic 98–135; BP diastolic 48–75
[2019-01-18] MEDS: IPRATROPIUM/ALBUTEROL SULFATE 3 ML SOLUTION IH SCH
[2019-01-18 00:29] LABS: ABG BASE EXCESS -0.5 mmol/L (-2.0-3.0); ABG HCO3 23.3 mmol/L (21.0-28.0); ABG OXYGEN SATURATION 89.2 % (95.0-99.0); ABG PCO2 36 mmHg (35-48)
--- NOTE | 2019-01-18 00:47 | NUR ---
Dr. Zhang notified Dr. Zhang was notified of patients chest xray result as per Dr. Rivas orders. Orderes were received by Dr. Schwacz. GALAN in route for emergency chest tube placement.
[2019-01-18] MEDS ORDERED: IPRATROPIUM/ALBUTEROL SULFATE 3 ML SOLUTION IH ONE (00:53)
[2019-01-18] MEDS ORDERED: LIDOCAINE HCL MPF 1% 5ML VIAL ONE (01:23)
--- NOTE | 2019-01-18 01:25 | NUR ---
Dr. Zhang at bedside. Dr. Zhang here at bedside for chest tube placement. 14fr cook Chest tube was placed at [address] Zhang. Post procedure xray was done and seen by Dr. Zhang.
[2019-01-18] MEDS: BENZONATATE 100 MG CAPSULE PO SCH ×3 (01:30→17:52)
[2019-01-18 04:16] LABS: ABG BASE EXCESS 0.5 mmol/L (-2.0-3.0); ABG HCO3 25.2 mmol/L (21.0-28.0); ABG OXYGEN SATURATION 95.8 % (95.0-99.0); ABG PCO2 41 mmHg (35-48)
[2019-01-18] MEDS: TRAMADOL HCL 50 MG TABLET PO PRN ×4 (04:35→20:38)
[2019-01-18 04:38] LABS: HEMATOCRIT 41.5 % (42-54); MEAN CORPUSCULAR HEMOGLOBIN 28.8 pg (27.0-33.0); MEAN CORPUSCULAR HGB CONC 32.7 g/dL (32.0-36.0); MEAN CORPUSCULAR VOLUME 88.3 fL (79-99); PLATELET COUNT (AUTO) 300 K/uL (130-400); WHITE BLOOD COUNT (AUTO) 18.1 K/uL (4.8-10.8)
[2019-01-18 04:47] LABS: CREATININE 0.7 mg/dL (0.5-1.5); PHOSPHORUS 4.4 mg/dL (2.5-4.9)
[2019-01-18 04:48] LABS: INR 1.09 (0.85-1.15); PARTIAL THROMBOPLASTIN TIME 21.2 SEC (26.3-35.5); PROTHROMBIN TIME 11.4 SEC (9.6-11.6)
[2019-01-18] MEDS ORDERED: CALCIUM GLUCONATE 1 GM/10 ML VIAL IV ONE (05:59)
[2019-01-18] MEDS: CALCIUM GLUCONATE 1 GM in SODIUM CHLORIDE 0.9% 50 ML IV PRN (06:09)
[2019-01-18] MEDS: CEFAZOLIN SODIUM 1 GM VIAL IV SCH (06:09)
[2019-01-18] MEDS: IPRATROPIUM/ALBUTEROL SULFATE 3 ML SOLUTION IH PRN ×3 (06:59→23:10)
--- NOTE | 2019-01-18 08:30 | NUR ---
REMOVED RIGHT GROIN SHEATH. APPLIED PRESSURE FOR 30MIN. PRESSURE DRESSING APPLIED.
[2019-01-18] MEDS: CLOPIDOGREL BISULFATE 75 MG TAB PO SCH (09:00)
[2019-01-18] MEDS: FUROSEMIDE 10 MG/ML 2ML VIAL IV SCH ×2 (09:09→20:36)
[2019-01-18] MEDS: ONDANSETRON HCL 4 MG/2 ML VIAL IV PRN (09:09)
[2019-01-18] MEDS: ASPIRIN 325MG EC TAB 325 MG TABLET.DR PO SCH (10:05)
[2019-01-18] MEDS: AZITHROMYCIN 250 MG TABLET PO SCH (13:46)
--- NOTE | 2019-01-18 19:00 | NUR ---
Received bedside report pt. is POD #1 today,pt is awake and coherent,denies chestpain or any discomfort at this time.
[2019-01-18] MEDS: INSULIN HUMULIN R 100 UNIT/ML 3ML SQ SCH (20:36)
[2019-01-19] VITALS (20 sets, daily range): BP systolic 96–124; BP diastolic 58–75
[2019-01-19] MEDS: BENZONATATE 100 MG CAPSULE PO SCH ×3 (01:14→16:18)
[2019-01-19 04:09] LABS: HEMATOCRIT 38.6 % (42-54); MEAN CORPUSCULAR HEMOGLOBIN 29.4 pg (27.0-33.0); MEAN CORPUSCULAR VOLUME 89.2 fL (79-99); PLATELET COUNT (AUTO) 247 K/uL (130-400); RED BLOOD CELL COUNT(AUTO) 4.33 MIL/uL (4.50-6.20); RED CELL DISTRIBUTION WIDTH 13.7 % (11.0-15.5); WHITE BLOOD COUNT (AUTO) 14.7 K/uL (4.8-10.8)
[2019-01-19] MEDS: TRAMADOL HCL 50 MG TABLET PO PRN ×2 (04:16→22:37)
[2019-01-19 04:26] LABS: CREATININE 0.8 mg/dL (0.5-1.5); POTASSIUM 3.9 mmol/L (3.5-5.1)
--- NOTE | 2019-01-19 05:02 | NUR ---
Pt. has been doing IS as instructed and able to cough out white thick phlegm.
[2019-01-19] MEDS: INSULIN HUMULIN R 100 UNIT/ML 3ML SQ SCH ×4 (06:17→21:00)
--- NOTE | 2019-01-19 06:19 | NUR ---
Pt. assisted per staff out of bed to chair and tolerated activity well.Pt. denies any pain or discomfort ,watching TV at this time while doing his IS.
--- NOTE | 2019-01-19 07:01 | NUR ---
Endorsed care to incoming NOD using SBAR ,all questions answered.
[2019-01-19] MEDS: ONDANSETRON HCL 4 MG/2 ML VIAL IV PRN (08:26)
[2019-01-19] MEDS: ASPIRIN 325MG EC TAB 325 MG TABLET.DR PO SCH (08:26)
[2019-01-19] MEDS: PANTOPRAZOLE SODIUM 40 MG TABLET.DR PO SCH (08:27)
[2019-01-19] MEDS: FUROSEMIDE 20 MG TABLET PO SCH ×2 (08:27→16:18)
[2019-01-19] MEDS: AZITHROMYCIN 250 MG TABLET PO SCH (12:17)
--- NOTE | 2019-01-19 12:50 | NUR ---
CLAMPED RIGHT CHEST TUBE PER MD ORDER.
[2019-01-19] MEDS: CLOPIDOGREL BISULFATE 75 MG TAB PO SCH (16:17)
[2019-01-19] MEDS: IPRATROPIUM/ALBUTEROL SULFATE 3 ML SOLUTION IH PRN (18:32)
--- NOTE | 2019-01-19 19:10 | NUR ---
Received bedside report ,pt. right anterior chest tube is clamped at this time.Pt. is awake and to bedside.
--- NOTE | 2019-01-19 20:00 | NUR ---
Bedside report given to nurse Poonam,pt agreed to transfer to room 204.Right chest tube continued to be clamped,no subcutaneous emphysema,no respiratory distress noted.Pt. is awake and coherent .V/S stable.
--- NOTE | 2019-01-19 20:00 | NUR ---
RECEIVED PT VIA CARDIAC CHAIR FROM ROOM 209. APPEARS COMFORTABLE YET ANXIOUS ABOUT TRANSFERRING OUT OF ICU. REASSURANCE GIVEN TO PT. NO FAMILY PRESENT. TELE APPLIED AND READING SR HR 89. NO SC EMPHYSEMA NOTED AND WILL CONTINUE TO MONITOR EVERY [address] LEBLANC. RIGHT ANTERIOR CHEST TUBE REMAINS CLAMPED AT THIS TIME.
[2019-01-19] MEDS: ATORVASTATIN CALCIUM 40 MG TABLET PO SCH (21:39)
[2019-01-20] MEDS: BENZONATATE 100 MG CAPSULE PO SCH ×4 (01:02→23:58)
[2019-01-20 03:00] VITALS: BP 108/64
[2019-01-20] MEDS: TRAMADOL HCL 50 MG TABLET PO PRN ×3 (03:22→23:52)
[2019-01-20 03:47] LABS: HEMATOCRIT 39.5 % (42-54); MEAN CORPUSCULAR HEMOGLOBIN 29.2 pg (27.0-33.0); MEAN CORPUSCULAR HGB CONC 33.1 g/dL (32.0-36.0); MEAN CORPUSCULAR VOLUME 88.1 fL (79-99); PLATELET COUNT (AUTO) 242 K/uL (130-400); RED BLOOD CELL COUNT(AUTO) 4.48 MIL/uL (4.50-6.20); RED CELL DISTRIBUTION WIDTH 13.4 % (11.0-15.5); WHITE BLOOD COUNT (AUTO) 12.1 K/uL (4.8-10.8)
[2019-01-20 04:01] LABS: CREATININE 0.8 mg/dL (0.5-1.5); POTASSIUM 3.7 mmol/L (3.5-5.1)
[2019-01-20] MEDS: INSULIN HUMULIN R 100 UNIT/ML 3ML SQ SCH ×4 (05:40→23:07)
[2019-01-20 07:43] VITALS: BP 106/68
[2019-01-20] MEDS: PANTOPRAZOLE SODIUM 40 MG TABLET.DR PO SCH (08:45)
[2019-01-20] MEDS: CLOPIDOGREL BISULFATE 75 MG TAB PO SCH (08:45)
[2019-01-20] MEDS: FUROSEMIDE 20 MG TABLET PO SCH ×2 (08:46→18:52)
[2019-01-20] MEDS: ASPIRIN 325MG EC TAB 325 MG TABLET.DR PO SCH (08:46)
[2019-01-20] MEDS ORDERED: METOPROLOL TARTRATE 25 MG TAB PO SCH (09:00)
[2019-01-20 11:32] VITALS: BP 98/73
[2019-01-20] MEDS: AZITHROMYCIN 250 MG TABLET PO SCH (13:43)
[2019-01-20] MEDS: ENOXAPARIN SODIUM 40 MG/0.4 ML SYRINGE SQ SCH (13:45)
[2019-01-20 15:26] VITALS: BP 104/67
--- NOTE | 2019-01-20 17:01 | NUR ---
heart healthy diet education: Provided pt with printed materials on heart healthy diet. KATRINA has encouraged pt to remove high sodium intake from his diet and high fat foods. Pt has verbalized understanding. Pt with multiple nutritional questions, all questions answered by KATRINA. Addendum: 01/20/19 at [address] Amended: Links added.
--- NOTE | 2019-01-20 17:05 | NUR ---
Nutrition f/u: Pt is s/p CABG, heart healthy diet education provided by KATRINA. Pt with multiple nutrition questions, all questions answered by KATRINA. Pt's not in room, however pt encouraged to request RD visit if had nutritional concerns. Recommendations: Heart healthy diet modification for appropriate diet placement. Addendum: 01/20/19 at [address] Amended: Links added.
[2019-01-20 19:18] VITALS: BP 95/61
[2019-01-20] MEDS: ATORVASTATIN CALCIUM 40 MG TABLET PO SCH (21:05)
[2019-01-20] MEDS: CARVEDILOL 3.125 MG TABLET PO SCH (21:05)
[2019-01-20] MEDS: LISINOPRIL 2.5 MG TABLET PO SCH (21:06)
[2019-01-21 00:24] VITALS: BP 97/63
[2019-01-21 03:42] LABS: HEMATOCRIT 38.2 % (42-54); MEAN CORPUSCULAR HEMOGLOBIN 29.8 pg (27.0-33.0); MEAN CORPUSCULAR HGB CONC 33.6 g/dL (32.0-36.0); MEAN CORPUSCULAR VOLUME 88.8 fL (79-99); PLATELET COUNT (AUTO) 325 K/uL (130-400); RED CELL DISTRIBUTION WIDTH 13.6 % (11.0-15.5); WHITE BLOOD COUNT (AUTO) 8.3 K/uL (4.8-10.8)
[2019-01-21 03:57] VITALS: BP 119/46
[2019-01-21 03:58] LABS: CREATININE 0.7 mg/dL (0.5-1.5); PHOSPHORUS 3.3 mg/dL (2.5-4.9); POTASSIUM 3.9 mmol/L (3.5-5.1)
[2019-01-21 05:01] LABS: B-TYPE NATRIURETIC PEPTIDE 2041 pg/mL (0-100)
[2019-01-21] MEDS: INSULIN HUMULIN R 100 UNIT/ML 3ML SQ SCH ×4 (06:11→20:41)
[2019-01-21] MEDS: IPRATROPIUM/ALBUTEROL SULFATE 3 ML SOLUTION IH PRN ×3 (06:39→19:01)
[2019-01-21 07:50] VITALS: BP 112/66
[2019-01-21] MEDS: FUROSEMIDE 20 MG TABLET PO SCH (08:27)
[2019-01-21] MEDS: BENZONATATE 100 MG CAPSULE PO SCH ×2 (08:27→17:30)
[2019-01-21] MEDS: ASPIRIN 81 MG EC TAB PO SCH (08:27)
[2019-01-21] MEDS: CLOPIDOGREL BISULFATE 75 MG TAB PO SCH (08:27)
[2019-01-21] MEDS: PANTOPRAZOLE SODIUM 40 MG TABLET.DR PO SCH (08:27)
[2019-01-21] MEDS: CARVEDILOL 3.125 MG TABLET PO SCH ×2 (08:27→20:31)
[2019-01-21] MEDS: ENOXAPARIN SODIUM 40 MG/0.4 ML SYRINGE SQ SCH (08:28)
[2019-01-21] MEDS ORDERED: PREDNISONE 10 MG TABLET PO SCH (09:00)
[2019-01-21] MEDS: LEVOFLOXACIN 500 MG TABLET PO SCH (10:07)
[2019-01-21] MEDS ORDERED: FUROSEMIDE 10 MG/ML 2ML VIAL IV SCH (10:30)
[2019-01-21 11:08] VITALS: BP 102/65
[2019-01-21] MEDS: SODIUM CHLORIDE 3% FOR INHALATION 4 ML/AMP VIAL.NEB IH SCH ×3 (11:12→23:38)
[2019-01-21] MEDS ORDERED: POLYETHYLENE GLYCOL 3350 17 GM POWD.PACK PO ONE (15:20)
[2019-01-21 15:37] VITALS: BP 102/66
--- NOTE | 2019-01-21 16:18 | NUR ---
DC PLAN VISITED WITH PATIENT. GOT IGOR FOR [employer] LIFE VEST INFO SENT. SAID WILL ASK FAMILY ABOUT GETTING FUNDS TO PAY FOR LIFE VEST. STILL HAS CHEST TUBE WEANING OF . Addendum: 01/21/19 at 1620 by NGOC RENDON RN CM Amended: Links added.
[2019-01-21 19:44] VITALS: BP 96/76
[2019-01-21] MEDS: LISINOPRIL 2.5 MG TABLET PO SCH (20:30)
[2019-01-21] MEDS: ATORVASTATIN CALCIUM 40 MG TABLET PO SCH (20:31)
[2019-01-21] MEDS: TRAMADOL HCL 50 MG TABLET PO PRN (20:42)
[2019-01-22] VITALS (7 sets, daily range): BP systolic 96–105; BP diastolic 52–69
[2019-01-22] MEDS: BENZONATATE 100 MG CAPSULE PO SCH ×3 (01:38→17:03)
[2019-01-22 04:18] LABS: MAGNESIUM 2.1 mg/dL (1.80-2.40); PHOSPHORUS 3.3 mg/dL (2.5-4.9)
[2019-01-22] MEDS: INSULIN HUMULIN R 100 UNIT/ML 3ML SQ SCH ×4 (05:50→21:05)
[2019-01-22] MEDS: IPRATROPIUM/ALBUTEROL SULFATE 3 ML SOLUTION IH PRN ×3 (06:35→19:16)
[2019-01-22] MEDS: SODIUM CHLORIDE 3% FOR INHALATION 4 ML/AMP VIAL.NEB IH SCH ×2 (06:35→10:50)
[2019-01-22] MEDS ORDERED: ASPI-555 PO (08:41)
[2019-01-22] MEDS ORDERED: CLOP75TA14 PO (08:41)
[2019-01-22] MEDS ORDERED: LISI2.5T2 PO (08:41)
[2019-01-22] MEDS ORDERED: ATOR40TA69 PO (08:41)
[2019-01-22] MEDS ORDERED: CARV3.12 PO (08:41)
[2019-01-22] MEDS ORDERED: FURO40TA5 PO (08:41)
--- NOTE | 2019-01-22 08:48 | NUR ---
DR. Shadi CABALLERO IN ROOM ASSESSING/SPEAKING SPEAKING WITH PT. AND EXPLAINING PLAN OF CARE; QUESTIONS ANSWERED BY DR. CABALLERO.
[2019-01-22 09:02] LABS: CREATININE 0.8 mg/dL (0.5-1.5); POTASSIUM 3.6 mmol/L (3.5-5.1)
[2019-01-22] MEDS: ASPIRIN 81 MG EC TAB PO SCH (10:03)
[2019-01-22] MEDS: FUROSEMIDE 40 MG TABLET PO SCH (10:03)
[2019-01-22] MEDS: LEVOFLOXACIN 500 MG TABLET PO SCH (10:04)
[2019-01-22] MEDS: CLOPIDOGREL BISULFATE 75 MG TAB PO SCH (10:04)
[2019-01-22] MEDS: CARVEDILOL 3.125 MG TABLET PO SCH ×2 (10:04→20:53)
[2019-01-22] MEDS: PANTOPRAZOLE SODIUM 40 MG TABLET.DR PO SCH (10:04)
[2019-01-22] MEDS: ENOXAPARIN SODIUM 40 MG/0.4 ML SYRINGE SQ SCH (10:05)
[2019-01-22] MEDS: POLYETHYLENE GLYCOL 3350 17 GM POWD.PACK PO SCH (10:05)
--- NOTE | 2019-01-22 11:21 | NUR ---
DR. HOLLINGSWORTH IN ROOM SPEAKING WITH PT. AND EXPLAINING PLAN OF CARE; QUESTIONS ANSWERED BY DR. HOLLINGSWORTH.
[2019-01-22] MEDS ORDERED: LACTULOSE 20 GM/30 ML UDCUP PO SCH (11:30)
[2019-01-22] MEDS: TRAMADOL HCL 50 MG TABLET PO PRN (13:45)
--- NOTE | 2019-01-22 14:56 | NUR ---
DR. CAMPOS, AT NURSE'S STATION MADE AWARE OF CHEST TUBE REMOVAL ORDER AND IN AGREEMENT.
--- NOTE | 2019-01-22 15:02 | NUR ---
DR. Ramon CAMPOS IN ROOM ASSESSING/SPEAKING WITH PT. QUESTIONS ANSWERED BY DR. CAMPOS.
--- NOTE | 2019-01-22 15:45 | NUR ---
CHEST TUBE REMOVED AFTER ASSISTED PT. INTO BED AND IN SUPINE POSITION. TOLERATED WELL. DENIES ANY C/O PAIN OR SOB AFTER REMOVAL. LIGHT DRSG APPLIED AND SECURED WITH PAPER TAPE. NO CREPITUS NOTED. CALL LIGHT WITHIN REACH, VERBALIZED ABILITY TO USE. BED LOW, SIDE RAILS UP X2.
[2019-01-22] MEDS ORDERED: SODIUM CHLORIDE 3% FOR INHALATION 4 ML/AMP VIAL.NEB IH ONE ×2 (18:10→22:48)
[2019-01-22] MEDS: LISINOPRIL 2.5 MG TABLET PO SCH (20:54)
[2019-01-22] MEDS: ATORVASTATIN CALCIUM 40 MG TABLET PO SCH (21:02)
[2019-01-22] MEDS: DOXYCYCLINE HYCLATE 100 MG TABLET PO SCH (21:02)
[2019-01-23] VITALS (7 sets, daily range): BP systolic 94–139; BP diastolic 53–77
[2019-01-23] MEDS: IPRATROPIUM/ALBUTEROL SULFATE 3 ML SOLUTION IH PRN ×2 (00:15→06:36)
[2019-01-23] MEDS: BENZONATATE 100 MG CAPSULE PO SCH ×2 (02:29→09:55)
[2019-01-23] MEDS: TRAMADOL HCL 50 MG TABLET PO PRN ×3 (02:33→22:24)
[2019-01-23] MEDS: INSULIN HUMULIN R 100 UNIT/ML 3ML SQ SCH ×4 (06:14→21:00)
--- NOTE | 2019-01-23 07:27 | NUR ---
DR. ALLEN IN ROOM SPEAKING WITH PT. RE:PLAN OF CARE. QUESTIONS ANSWERED BY DR. ALLEN.
--- NOTE | 2019-01-23 08:40 | NUR ---
Vanessa CALDERA NP, IN ROOM ASSESSING/SPEAKING WITH PT.
--- NOTE | 2019-01-23 08:54 | NUR ---
DR. Shadi CABALLERO IN ROOM ASSESSING/SPEAKING WITH PT. RE:PLAN OF CARE. QUESTIONS ANSWERED BY DR. CABALLERO.
[2019-01-23] MEDS: POLYETHYLENE GLYCOL 3350 17 GM POWD.PACK PO SCH (09:00)
[2019-01-23] MEDS: CLOPIDOGREL BISULFATE 75 MG TAB PO SCH (09:56)
[2019-01-23] MEDS: FUROSEMIDE 40 MG TABLET PO SCH (09:56)
[2019-01-23] MEDS: DOXYCYCLINE HYCLATE 100 MG TABLET PO SCH ×2 (09:56→21:30)
[2019-01-23] MEDS: CARVEDILOL 3.125 MG TABLET PO SCH ×2 (09:56→21:31)
[2019-01-23] MEDS: PANTOPRAZOLE SODIUM 40 MG TABLET.DR PO SCH (09:56)
[2019-01-23] MEDS: ASPIRIN 81 MG EC TAB PO SCH (09:57)
[2019-01-23] MEDS: ENOXAPARIN SODIUM 40 MG/0.4 ML SYRINGE SQ SCH (09:57)
--- NOTE | 2019-01-23 13:30 | NUR ---
DR. Ramon CAMPOS IN ROOM ASSESSING/SPEAKING WITH PT.
[2019-01-23] MEDS ORDERED: BENZONATATE 100 MG CAPSULE PO PRN (14:00)
[2019-01-23] MEDS: LISINOPRIL 2.5 MG TABLET PO SCH (21:30)
[2019-01-23] MEDS: ATORVASTATIN CALCIUM 40 MG TABLET PO SCH (21:30)
[2019-01-24 03:47] LABS: HEMATOCRIT 40.4 % (42-54); MEAN CORPUSCULAR HEMOGLOBIN 29.3 pg (27.0-33.0); MEAN CORPUSCULAR HGB CONC 33.2 g/dL (32.0-36.0); MEAN CORPUSCULAR VOLUME 88.1 fL (79-99); PLATELET COUNT (AUTO) 379 K/uL (130-400); RED BLOOD CELL COUNT(AUTO) 4.58 MIL/uL (4.50-6.20); RED CELL DISTRIBUTION WIDTH 13.6 % (11.0-15.5); WHITE BLOOD COUNT (AUTO) 8.6 K/uL (4.8-10.8)
[2019-01-24 03:48] VITALS: BP 97/59
[2019-01-24 04:08] LABS: CREATININE 0.7 mg/dL (0.5-1.5); POTASSIUM 4.1 mmol/L (3.5-5.1)
[2019-01-24 04:17] LABS: B-TYPE NATRIURETIC PEPTIDE 1080 pg/mL (0-100)
[2019-01-24] MEDS: INSULIN HUMULIN R 100 UNIT/ML 3ML SQ SCH ×3 (05:31→15:52)
[2019-01-24 07:00] VITALS: BP 100/63
[2019-01-24] MEDS: ASPIRIN 81 MG EC TAB PO SCH (09:14)
[2019-01-24] MEDS: TRAMADOL HCL 50 MG TABLET PO PRN ×2 (09:15→17:37)
[2019-01-24] MEDS: CLOPIDOGREL BISULFATE 75 MG TAB PO SCH (09:15)
[2019-01-24] MEDS: CARVEDILOL 3.125 MG TABLET PO SCH (09:16)
[2019-01-24] MEDS: PANTOPRAZOLE SODIUM 40 MG TABLET.DR PO SCH (09:17)
[2019-01-24] MEDS: FUROSEMIDE 40 MG TABLET PO SCH (09:17)
[2019-01-24] MEDS: POLYETHYLENE GLYCOL 3350 17 GM POWD.PACK PO SCH (09:17)
[2019-01-24] MEDS: DOXYCYCLINE HYCLATE 100 MG TABLET PO SCH (09:19)
[2019-01-24] MEDS: ENOXAPARIN SODIUM 40 MG/0.4 ML SYRINGE SQ SCH (09:23)
[2019-01-24 11:00] VITALS: BP 106/69
--- NOTE | 2019-01-24 14:58 | NUR ---
[employer] ORDER FAXED TO REP AND ACCEPTED. THEY WILL BE DELIVERED TODAY AT 530PM. Addendum: 01/24/19 at 1509 by NGOC RENDON RN CM Amended: Links added.
[2019-01-24 16:00] VITALS: BP 95/63
== END 2019-01-24 19:45 | disposition home or self-care (01) | DRG 233 ==
LOC: EDH 23:30 → EDHIP 23:31 → 3DH 01-09 15:19 → 2CV 01-17 10:31 → 2BH 01-17 17:43 → 2AH 01-19 20:14
PROVIDERS: ADMIT Internal Medicine; ATTEND Internal Medicine
PROC: 4A023N7 Measurement of Cardiac Sampling and Pressure, Left Heart, Percutaneous Approach (ICD-10-PCS; principal; 2019-01-13)
PROC: B2111ZZ Fluoroscopy of Multiple Coronary Arteries using Low Osmolar Contrast (ICD-10-PCS; 2019-01-13)
PROC: B2151ZZ Fluoroscopy of Left Heart using Low Osmolar Contrast (ICD-10-PCS; 2019-01-13)
PROC: B41F1ZZ Fluoroscopy of Right Lower Extremity Arteries using Low Osmolar Contrast (ICD-10-PCS; 2019-01-13)
PROC: 021109W Bypass Coronary Artery, Two Arteries from Aorta with Autologous Venous Tissue, Open Approach (ICD-10-PCS; 2019-01-17)
PROC: 06BQ4ZZ Excision of Left Saphenous Vein, Percutaneous Endoscopic Approach (ICD-10-PCS; 2019-01-17)
PROC: 02100Z9 Bypass Coronary Artery, One Artery from Left Internal Mammary, Open Approach (ICD-10-PCS; 2019-01-17 08:05)
PROC: 0W9930Z Drainage of Right Pleural Cavity with Drainage Device, Percutaneous Approach (ICD-10-PCS; 2019-01-18)
DX: I21.4 Non-ST elevation (NSTEMI) myocardial infarction (principal); I50.43 Acute on chronic combined systolic (congestive) and diastolic (congestive) heart failure; J93.0 Spontaneous tension pneumothorax; J96.01 Acute respiratory failure with hypoxia; J93.82 Other air leak; I42.0 Dilated cardiomyopathy; I25.10 Atherosclerotic heart disease of native coronary artery without angina pectoris; I49.3 Ventricular premature depolarization; J20.9 Acute bronchitis, unspecified; J45.909 Unspecified asthma, uncomplicated; J10.1 Influenza due to other identified influenza virus with other respiratory manifestations; E11.9 Type 2 diabetes mellitus without complications; E66.9 Obesity, unspecified; E78.5 Hyperlipidemia, unspecified; E87.6 Hypokalemia; I11.0 Hypertensive heart disease with heart failure; I25.5 Ischemic cardiomyopathy; J32.0 Chronic maxillary sinusitis; J32.2 Chronic ethmoidal sinusitis; R79.1 Abnormal coagulation profile; Z68.33 Body mass index [BMI] 33.0-33.9, adult; Z79.02 Long term (current) use of antithrombotics/antiplatelets; Z79.4 Long term (current) use of insulin; Z79.82 Long term (current) use of aspirin; Z79.899 Other long term (current) drug therapy; Z95.1 Presence of aortocoronary bypass graft; Z83.3 Family history of diabetes mellitus; Z82.49 Family history of ischemic heart disease and other diseases of the circulatory system
CPT/HCPCS: 36415; 36600; 70450; 71045; 71046; 71275; 80048; 80053; 80061; 80305; 81001; 82330; 82435; 82550; 82803; 82947; 82948; 83036; 83605; 83735; 83874; 83880; 84100; 84132; 84295; 84443; 84484; 85018; 85025; 85027; 85347; 85378; 85610; 85730; 86850; 86900; 86901; 86922; 87040; 87071; 87205; 87486; 87581; 87633; 87798; 87804; 93005; 93306; 93458; 93880; 94002; 94150; 94640; 94664; 97039; 99156; 99157; A4218; A7048; C1751; C1760; C1894; C9113; G0378; J0171; J0456; J0583; J0610; J0690; J0697; J1644; J1650; J1815; J1940; J2001; J2250; J2270; J2370; J2405; J2440; J2704; J2720; J3010; J3475; J3480; J3490; J7030; J7040; J7060; J7512; Q9967

== ENCOUNTER 2019-01-29 05:11 | Inpatient (IN) | payer OTHER ==
[~2019-01-29] VITALS: Ht 165.1 cm; Wt 76.6 kg
[~2019-01-29 05:11] MED LIST changes: +ASPI-555 PO; +ATOR40TA69 PO; -CALCIUM CHLORIDE 100 MG/ML 10 ML SYG IVP ONE; +CARV3.12 PO; +CLOP75TA14 PO; +FURO40TA5 PO; +GUAI177L20 PO; -HEPARIN SODIUM 10000 UNIT/ML 1ML VIAL IJ ONE; +LISI2.5T2 PO; +METF-445 PO; -PHENYLEPHRINE HCL 10 MG/ML 1ML VIAL IV ONE
[2019-01-29 05:30] LABS: BASOPHILS % (AUTO) 0.7 % (0.0-5.0); EOSINOPHILS % (AUTO) 2.3 % (0.0-8.0); HEMATOCRIT 43.3 % (42-54); LYMPHOCYTES % (AUTO) 35.2 % (21.0-51.0); MEAN CORPUSCULAR HEMOGLOBIN 29.2 pg (27.0-33.0); MEAN CORPUSCULAR HGB CONC 33.5 g/dL (32.0-36.0); MEAN CORPUSCULAR VOLUME 87.2 fL (79-99); MONOCYTES % (AUTO) 12.3 % (3.0-13.0); NEUTROPHILS % (AUTO) 49.5 % (40.0-77.0); PLATELET COUNT (AUTO) 403 K/uL (130-400); RED BLOOD CELL COUNT(AUTO) 4.97 MIL/uL (4.50-6.20); RED CELL DISTRIBUTION WIDTH 13.5 % (11.0-15.5); WHITE BLOOD COUNT (AUTO) 8.2 K/uL (4.8-10.8)
[2019-01-29 05:40] LABS: CREATININE 0.9 mg/dL (0.5-1.5); POTASSIUM 3.5 mmol/L (3.5-5.1)
[2019-01-29 05:45] LABS: INR 1.04 (0.85-1.15); PARTIAL THROMBOPLASTIN TIME 26.2 SEC (26.3-35.5); PROTHROMBIN TIME 10.9 SEC (9.6-11.6)
[2019-01-29 05:50] LABS: ALBUMIN 3.3 g/dL (3.5-5.0); BILIRUBIN,TOTAL 1.1 mg/dL (0.2-1.0); TOTAL PROTEIN, SERUM 8.5 g/dL (6.0-8.3)
[2019-01-29] MEDS ORDERED: ACETAMINOPHEN 325 MG TAB PO PRN (07:00)
[2019-01-29] MEDS ORDERED: ONDANSETRON HCL 4 MG/2 ML VIAL IV PRN (07:00)
[2019-01-29] MEDS ORDERED: MORPHINE SULFATE 2 MG/ML 1ML SYG IV PRN (07:00)
[2019-01-29 08:13] LABS: APPEARANCE,URINE Cloudy (CLEAR); BILIRUBIN,URINE Negative (NEGATIVE); COLOR,URINE Yellow (YELLOW); GLUCOSE, URINE (UA) Negative (NEGATIVE); KETONES,URINE Trace mg/dL (NEGATIVE); LEUKOCYTE ESTERASE ,URINE Negative (NEGATIVE); NITRATE,URINE Negative (NEGATIVE); OCCULT BLOOD,URINE Negative (NEGATIVE); PROTEIN,URINE Negative (NEGATIVE)
[2019-01-29 08:19] LABS: BACTERIA,URINE Rare /HPF (None Seen); MUCUS,URINE Rare LPF (None Seen); RBC,URINE 0-1 /HPF (0-1); SQUAMOUS EPITHELIAL CELL,UR Rare /HPF (0-2)
[2019-01-29 08:21] LABS: AMPHET/METH SCREEN,URINE NEGATIVE (NEGATIVE); BARBITURATE SCREEN, URINE NEGATIVE (NEGATIVE); BENZODIAZEPINES SCREEN,URINE NEGATIVE (NEGATIVE); CANNABINOID SCREEN,URINE NEGATIVE (NEGATIVE); COCAINE SCREEN,URINE NEGATIVE (NEGATIVE); OPIATE SCREEN,URINE NEGATIVE (NEGATIVE); PHENCYCLIDINE SCREEN,URINE NEGATIVE (NEGATIVE)
[2019-01-29] MEDS: PANTOPRAZOLE SODIUM 40 MG TABLET.DR PO SCH (09:00)
[2019-01-29] MEDS ORDERED: BENZONATATE 100 MG CAPSULE PO ONE (14:47)
[2019-01-29] MEDS ORDERED: ACETAMINOPHEN 325 MG TAB ONE (14:59)
[2019-01-29] MEDS ORDERED: ASPI-1005 PO (15:11)
[2019-01-29 17:00] VITALS: BP 106/71
[2019-01-29 20:06] VITALS: BP 109/75
[2019-01-29] MEDS: CARVEDILOL 3.125 MG TABLET PO SCH (20:33)
[2019-01-29] MEDS: ASPIRIN 81MG TAB.CHEW PO SCH (20:33)
[2019-01-29] MEDS: ATORVASTATIN CALCIUM 40 MG TABLET PO SCH (20:33)
[2019-01-29] MEDS: INSULIN HUMULIN R 100 UNIT/ML 3ML SQ SCH (21:00)
[2019-01-29] MEDS ORDERED: ATORVASTATIN CALCIUM 40 MG TABLET PO SCH (21:00)
[2019-01-29] MEDS: GUAIFENESIN-CODEINE 5 ML SYRUP PO PRN (21:30)
[2019-01-29 23:59] VITALS: BP 99/64
[2019-01-30] VITALS (7 sets, daily range): BP systolic 85–101; BP diastolic 52–67
--- NOTE | 2019-01-30 01:38 | NUR ---
Patient resting in bed. Denies pain or sob. Patient does not have any weakness to upper extremities. Has mild weakness to bilateral extremities. No deficits noticed during q 4 Nuero checks. Patient denies weakness to left side of body. Will continue to monitor
[2019-01-30] MEDS: GUAIFENESIN-CODEINE 5 ML SYRUP PO PRN ×2 (05:31→20:40)
[2019-01-30] MEDS: INSULIN HUMULIN R 100 UNIT/ML 3ML SQ SCH ×4 (06:42→21:00)
[2019-01-30 07:04] LABS: CREATININE 0.8 mg/dL (0.5-1.5); POTASSIUM 3.6 mmol/L (3.5-5.1)
[2019-01-30] MEDS: PANTOPRAZOLE SODIUM 40 MG TABLET.DR PO SCH (08:44)
[2019-01-30] MEDS: CARVEDILOL 3.125 MG TABLET PO SCH ×2 (08:44→21:00)
[2019-01-30] MEDS: LISINOPRIL 2.5 MG TABLET PO SCH (08:44)
[2019-01-30] MEDS: CLOPIDOGREL BISULFATE 75 MG TAB PO SCH (08:44)
[2019-01-30] MEDS: FUROSEMIDE 40 MG TABLET PO SCH (08:45)
--- NOTE | 2019-01-30 10:12 | NUR ---
DR. CABALLERO IS IN TO SEE PATIENT. ORTHOSTATIC VITALS ORDERED. D/C PLANNING TOMORROW IF MRI IS NON-CONCERNING.
[2019-01-30] MEDS: ENOXAPARIN SODIUM 40 MG/0.4 ML SYRINGE SQ SCH (10:33)
--- NOTE | 2019-01-30 10:42 | NUR ---
DR. LOZANO IS MAKING HIS ROUNDS. SPOKE WITH MRI AND TECH SAID IT IS SAFE TO DO TEST CONSIDERING PATIENT JUST HAD CABG A COUPLE OF WEEKS AGO.
--- NOTE | 2019-01-30 11:58 | NUR ---
MRI HEAD COMPLETED. PENDING RESULTS.
--- NOTE | 2019-01-30 12:00 | NUR ---
PATIENT C/O SEEING BLURRY AFTER COMING BACK FROM MRI. INFORMED DR. HOLLINGSWORTH. VS FOLLOWS: BP:99/70, HR:85, O2 SAT:100% ON 2L PER NASAL CANNULA. PATIENT DENIES FEELING DIZZY. Addendum: 01/30/19 at 1231 by GUERLINE COHN RN RN Amended: Links added.
--- NOTE | 2019-01-30 12:14 | NUR ---
DC PLAN VISITED WITH PATIENT. PATIENT LIVES WITH SPOUSE. INDEPENDENT ABLE TO PERFORM ADL'S. PATIENT HAS NO SERVICES OR DME'S. FEELS SAFE TO RETURN HOME. Addendum: 01/30/19 at 1215 by NGOC RENDON RN CM Amended: Links added.
[2019-01-30] MEDS: ATORVASTATIN CALCIUM 40 MG TABLET PO SCH (20:40)
[2019-01-30] MEDS: ASPIRIN 81MG TAB.CHEW PO SCH (20:40)
[2019-01-31 00:20] VITALS: BP 97/60
[2019-01-31] MEDS: GUAIFENESIN-CODEINE 5 ML SYRUP PO PRN ×2 (03:58→16:18)
[2019-01-31 04:02] VITALS: BP 97/62
[2019-01-31 04:06] LABS: HEMATOCRIT 39.5 % (42-54); MEAN CORPUSCULAR HEMOGLOBIN 29.8 pg (27.0-33.0); MEAN CORPUSCULAR VOLUME 87.5 fL (79-99); NUCLEATED RED BLOOD CELLS 0.1 % (0.0-0.19); PLATELET COUNT (AUTO) 312 K/uL (130-400); RED BLOOD CELL COUNT(AUTO) 4.52 MIL/uL (4.50-6.20); RED CELL DISTRIBUTION WIDTH 13.4 % (11.0-15.5)
[2019-01-31 04:18] LABS: ALBUMIN 2.9 g/dL (3.5-5.0); CREATININE 0.8 mg/dL (0.5-1.5); MAGNESIUM 1.8 mg/dL (1.80-2.40); PHOSPHORUS 3.3 mg/dL (2.5-4.9); POTASSIUM 3.8 mmol/L (3.5-5.1)
[2019-01-31 04:37] LABS: B-TYPE NATRIURETIC PEPTIDE 725 pg/mL (0-100)
--- NOTE | 2019-01-31 06:10 | NUR ---
Patient alert and oriented. Denies pain or sob. Neuro checks q4H without deficits. Patient denies weakness to left side. Will continue to monitor.
[2019-01-31] MEDS: INSULIN HUMULIN R 100 UNIT/ML 3ML SQ SCH ×3 (06:43→16:30)
[2019-01-31 08:10] VITALS: BP 105/70
[2019-01-31] MEDS: CLOPIDOGREL BISULFATE 75 MG TAB PO SCH (09:00)
[2019-01-31] MEDS: CARVEDILOL 3.125 MG TABLET PO SCH (09:00)
[2019-01-31] MEDS: ENOXAPARIN SODIUM 40 MG/0.4 ML SYRINGE SQ SCH (09:00)
[2019-01-31] MEDS: FUROSEMIDE 40 MG TABLET PO SCH (09:00)
[2019-01-31] MEDS ORDERED: CARVEDILOL 3.125 MG TABLET PO SCH (09:30)
[2019-01-31] MEDS ORDERED: FUROSEMIDE 20 MG TABLET PO SCH (09:30)
[2019-01-31] MEDS ORDERED: APIXABAN 5 MG TABLET PO SCH (09:30)
[2019-01-31] MEDS ORDERED: APIX5TAB PO (09:33)
[2019-01-31] MEDS ORDERED: CARV3.12 PO (09:33)
[2019-01-31] MEDS ORDERED: PANT40TA PO (09:33)
[2019-01-31] MEDS ORDERED: FURO40TA5 PO (09:33)
[2019-01-31] MEDS ORDERED: SPIR25TA6 PO (09:33)
[2019-01-31] MEDS: LISINOPRIL 2.5 MG TABLET PO SCH (09:41)
[2019-01-31] MEDS: PANTOPRAZOLE SODIUM 40 MG TABLET.DR PO SCH (09:41)
[2019-01-31 12:01] VITALS: BP 118/80
[2019-01-31 16:45] VITALS: BP 91/61
--- NOTE | 2019-01-31 18:30 | NUR ---
ELIQUIS CARD PROVIDED TO PT. FOR FREE ONE MONTH SUPPLY AND INSTRUCTIONS FOR USE PROVIDED; PT.'S SPOUSE AND DAUGHTER AT BEDSIDE.
--- NOTE | 2019-01-31 18:35 | NUR ---
GIVEN DISMISSAL INSTRUCTIONS AND SCRIPTS TO PT. VERBALIZED UNDERSTANDING. REMOVED SALINE LOCK FROM LEFT HAND, IV SITE WITHOUT REDNESS NOTED. REMOVED TELE PACK.
== END 2019-01-31 19:00 | disposition home or self-care (01) | DRG 64 ==
LOC: EDH 05:11 → EDHIP 05:12 → 2DH 17:07
PROVIDERS: ADMIT Internal Medicine; ATTEND Internal Medicine
DX: I63.81 Other cerebral infarction due to occlusion or stenosis of small artery (principal); I21.4 Non-ST elevation (NSTEMI) myocardial infarction; I50.22 Chronic systolic (congestive) heart failure; G81.94 Hemiplegia, unspecified affecting left nondominant side; I11.0 Hypertensive heart disease with heart failure; I25.5 Ischemic cardiomyopathy; I25.10 Atherosclerotic heart disease of native coronary artery without angina pectoris; E11.9 Type 2 diabetes mellitus without complications; E78.5 Hyperlipidemia, unspecified; J45.909 Unspecified asthma, uncomplicated; R29.701 NIHSS score 1; W01.0XXA Fall on same level from slipping, tripping and stumbling without subsequent striking against object, initial encounter; Z79.02 Long term (current) use of antithrombotics/antiplatelets; Z79.82 Long term (current) use of aspirin; Z79.899 Other long term (current) drug therapy; Z95.1 Presence of aortocoronary bypass graft; Y93.89 Activity, other specified; Y92.89 Other specified places as the place of occurrence of the external cause; Y99.8 Other external cause status; Z83.3 Family history of diabetes mellitus; Z82.49 Family history of ischemic heart disease and other diseases of the circulatory system
CPT/HCPCS: 36415; 70450; 70544; 70551; 71045; 80048; 80053; 80305; 81001; 82040; 82550; 82948; 83735; 83874; 83880; 84100; 84484; 85025; 85027; 85610; 85730; 93005; 93306; G0378; J1650; J1815

== ENCOUNTER 2019-02-16 10:33 | Inpatient (IN) | payer OTHER ==
[~2019-02-16] VITALS: Ht 165.1 cm; Wt 77.3 kg
[~2019-02-16 10:33] MED LIST changes: +APIX5TAB PO; +ASPI-1005 PO; -ASPI-555 PO; -CLOP75TA14 PO; -GUAI177L20 PO; +PANT40TA PO; +SPIR25TA6 PO
[2019-02-16 11:08] LABS: BASOPHILS % (AUTO) 0.7 % (0.0-5.0); EOSINOPHILS % (AUTO) 4.4 % (0.0-8.0); HEMATOCRIT 38.9 % (42-54); LYMPHOCYTES % (AUTO) 31.9 % (21.0-51.0); MEAN CORPUSCULAR HEMOGLOBIN 30.6 pg (27.0-33.0); MEAN CORPUSCULAR HGB CONC 34.9 g/dL (32.0-36.0); MEAN CORPUSCULAR VOLUME 87.8 fL (79-99); MONOCYTES % (AUTO) 9.9 % (3.0-13.0); NEUTROPHILS % (AUTO) 53.1 % (40.0-77.0); PLATELET COUNT (AUTO) 160 K/uL (130-400); RED BLOOD CELL COUNT(AUTO) 4.43 MIL/uL (4.50-6.20); RED CELL DISTRIBUTION WIDTH 13.9 % (11.0-15.5); WHITE BLOOD COUNT (AUTO) 4.1 K/uL (4.8-10.8)
[2019-02-16 11:15] LABS: CREATININE 0.8 mg/dL (0.5-1.5); POTASSIUM 3.9 mmol/L (3.5-5.1)
[2019-02-16 11:20] LABS: ALBUMIN 3.4 g/dL (3.5-5.0); BILIRUBIN,TOTAL 0.6 mg/dL (0.2-1.0); TOTAL PROTEIN, SERUM 7.1 g/dL (6.0-8.3)
[2019-02-16] MEDS ORDERED: ONDANSETRON HCL 4 MG/2 ML VIAL IV PRN (15:15)
[2019-02-16] MEDS ORDERED: ACETAMINOPHEN 325 MG TAB PO PRN ×2 (15:15)
[2019-02-16] MEDS ORDERED: FURO10SO PO (15:43)
[2019-02-16] MEDS ORDERED: SPIR25TA6 PO (15:43)
[2019-02-16] MEDS ORDERED: GUAI-1170 PO (15:45)
[2019-02-16 15:54] VITALS: BP_SYST 89; BP_SYST 91; BP_SYST 95; BP_DIAS 58; BP_DIAS 60; BP_DIAS 63
[2019-02-16] MEDS: INSULIN HUMULIN R 100 UNIT/ML 3ML SQ SCH ×2 (16:30→19:58)
[2019-02-16 17:20] VITALS: BP_SYST 101; BP_SYST 105; BP_SYST 94; BP_DIAS 60; BP_DIAS 65; BP_DIAS 72
[2019-02-16] MEDS: METFORMIN HCL 850 MG TABLET PO SCH (17:38)
[2019-02-16 19:00] VITALS: BP_SYST 105; BP_SYST 107; BP_SYST 111; BP_DIAS 66; BP_DIAS 67; BP_DIAS 73
[2019-02-16] MEDS: FAMOTIDINE 20MG TAB 20 MG TAB PO SCH (20:16)
[2019-02-16] MEDS: APIXABAN 5 MG TABLET PO SCH (20:16)
[2019-02-16] MEDS: GUAIFENESIN-DM 200/20 MG 10 ML PO PRN (20:16)
[2019-02-16] MEDS ORDERED: ATORVASTATIN CALCIUM 40 MG TABLET PO SCH (21:00)
[2019-02-16] MEDS ORDERED: ASPIRIN 81MG TAB.CHEW PO SCH (21:00)
[2019-02-16 23:00] VITALS: BP 103/65
--- NOTE | 2019-02-17 02:30 | NUR ---
PATIENT COMPLAINING OF PAIN/GAS PAIN. HOSPITALIST STEAMER BLOCKER PAGED. ELIS MLEGAR RETURNED CALL, INFORMED OF PATIENT'S COMPLAINTS, ORDERS RECEIVED AND PLACED IN COMPUTER. PATIENT MEDICATED INDICATED ON EMAR.
[2019-02-17] MEDS ORDERED: MAG HYDROX/AL HYDROX/SIMETH ES 30 ML SUSP UDCUP PO PRN (02:45)
[2019-02-17] MEDS ORDERED: DICYCLOMINE HCL 10 MG/ML 2ML AMP IM PRN (02:45)
[2019-02-17 03:00] VITALS: BP 121/79
[2019-02-17] MEDS ORDERED: MAG HYDROX/AL HYDROX/SIMETH ES 30 ML SUSP UDCUP ONE (03:08)
[2019-02-17] MEDS: INSULIN HUMULIN R 100 UNIT/ML 3ML SQ SCH ×3 (06:05→16:30)
[2019-02-17 07:39] VITALS: BP 106/79
[2019-02-17] MEDS: METFORMIN HCL 850 MG TABLET PO SCH ×2 (08:35→16:37)
[2019-02-17] MEDS: FAMOTIDINE 20MG TAB 20 MG TAB PO SCH (08:36)
[2019-02-17] MEDS: APIXABAN 5 MG TABLET PO SCH (08:36)
[2019-02-17] MEDS ORDERED: SPIRONOLACTONE 25 MG TAB PO SCH (09:00)
[2019-02-17] MEDS ORDERED: LISINOPRIL 2.5 MG TABLET PO SCH (09:00)
[2019-02-17] MEDS ORDERED: CARVEDILOL 3.125 MG TABLET PO SCH ×2 (09:00→21:00)
[2019-02-17 11:24] VITALS: BP 99/73
[2019-02-17] MEDS: GUAIFENESIN-DM 200/20 MG 10 ML PO PRN (11:27)
[2019-02-17 16:07] VITALS: BP 110/70
--- NOTE | 2019-02-17 16:10 | NUR ---
DISCHARGE Verified with [employer] technical account representative that contact had been made with pt for retraining as ordered by . According to documentation by [employer] rep, pt voiced understanding of information provided. Will ensure pt has appropriate contact number for [employer] should he have the need once discharged.
--- NOTE | 2019-02-17 17:06 | NUR ---
DISCHARGE MEDS After discussion with both and , pt's final medication course determined. Will discuss with pt at time of discharge.
--- NOTE | 2019-02-17 18:30 | NUR ---
DISCHARGE While in to discuss discharge instructions with pt, pt and family member at bedside voiced multiple questions regarding home medication regimen. Pt does not have outpt meds with him but family member who will provide transportation will be bringing in meds. Informed pt that these will be reviewed with him prior to discharge. Discharge meds from pt's recent discharge, 01/31/19, was reviewed with pt but he did not agree with information. Questions otherwise addressed. Made aware of next follow up appt with . Ensured that pt has 1 [phone] number for [employer] in the event he has questions/concerns regarding life vest.
--- NOTE | 2019-02-17 19:00 | NUR ---
report given to night nurse; patient pending to bring home meds to compare meds to discharge papers. PIV out; tele pack removed; patient seen earlier today by life vest rep to reinforce life vest teaching.
[2019-02-17 19:28] VITALS: BP 115/69
--- NOTE | 2019-02-17 20:00 | NUR ---
DC HOME MEDICATIONS AND CURRENT MEDICATIONS REVIEWED AND EXPLAINED TO PT AND FAMILY. INSTRUCTED TO CALL MD SHOULD FURTHER QUESTIONS ARISE; VOICED UNDERSTANDING. TELEPACK REMOVED, NO IV PRESENT. BP-115/69,SR-97,RR-20, O2 SATS AT 97% ON RA, BS-91. PT ESCORTED TO PRIVATE CAR VIA WHEELCHAIR IN STABLE CONDITION.
== END 2019-02-17 20:08 | disposition home or self-care (01) | DRG 312 ==
LOC: EDH 10:33 → EDHIP 10:34 → OBSVTOIN 10:34 → 2AH 14:42
PROVIDERS: ADMIT Internal Medicine; ATTEND Internal Medicine
PROC: 4B02XTZ Measurement of Cardiac Defibrillator, External Approach (ICD-10-PCS; principal; 2019-02-16)
DX: R55 Syncope and collapse (principal); E11.9 Type 2 diabetes mellitus without complications; E78.5 Hyperlipidemia, unspecified; I25.10 Atherosclerotic heart disease of native coronary artery without angina pectoris; I11.9 Hypertensive heart disease without heart failure; I25.5 Ischemic cardiomyopathy; I51.3 Intracardiac thrombosis, not elsewhere classified; I95.2 Hypotension due to drugs; Z79.01 Long term (current) use of anticoagulants; Z95.1 Presence of aortocoronary bypass graft; Z83.3 Family history of diabetes mellitus; Z82.49 Family history of ischemic heart disease and other diseases of the circulatory system
CPT/HCPCS: 36415; 71045; 80053; 82948; 83880; 84484; 85025; 93005; G0378

== ENCOUNTER 2020-01-04 21:59 | Emergency (ER) | payer OTHER, SELFPAY ==
[~2020-01-04 21:59] MED LIST changes: +ACET-66 PO; -APIX5TAB PO; -CARV3.12 PO; +CARV6.25 PO; +FAMO-135 PO; +FURO20TA4 PO; -FURO40TA5 PO; +LEVO500T89 PO; +METR-172 PO; +OMEP20CA12 PO; -PANT40TA PO; -SPIR25TA6 PO
[2020-01-04 22:31] LABS: BASOPHILS % (AUTO) 0.8 % (0.0-5.0); EOSINOPHILS % (AUTO) 4.1 % (0.0-8.0); HEMATOCRIT 39.9 % (42-54); LYMPHOCYTES % (AUTO) 38.8 % (21.0-51.0); MEAN CORPUSCULAR HEMOGLOBIN 28.6 pg (27.0-33.0); MEAN CORPUSCULAR HGB CONC 32.6 g/dL (32.0-36.0); MEAN CORPUSCULAR VOLUME 87.9 fL (79-99); MONOCYTES % (AUTO) 11.6 % (3.0-13.0); NEUTROPHILS % (AUTO) 44.4 % (40.0-77.0); PLATELET COUNT (AUTO) 102 K/uL (130-400); RED BLOOD CELL COUNT(AUTO) 4.54 MIL/uL (4.50-6.20); RED CELL DISTRIBUTION WIDTH 13.8 % (11.0-15.5); WHITE BLOOD COUNT (AUTO) 7.3 K/uL (4.8-10.8)
[2020-01-04 22:36] LABS: INR 0.92 (0.85-1.15); PARTIAL THROMBOPLASTIN TIME 18.3 SEC (26.3-35.5)
[2020-01-04 22:37] LABS: CREATININE 0.9 mg/dL (0.5-1.5); POTASSIUM 3.8 mmol/L (3.5-5.1)
[2020-01-04 22:42] LABS: TOTAL PROTEIN, SERUM 8.3 g/dL (6.0-8.3)
[2020-01-04] MEDS ORDERED: ASPIRIN 325 MG TABLET ONE (22:43)
[2020-01-04 22:59] LABS: AMYLASE 89 U/L (25-115); LIPASE 189 U/L (114-286)
== END 2020-01-05 01:54 | disposition home or self-care (01) ==
LOC: EDH 21:59
DX: R07.89 Other chest pain (principal); R11.0 Nausea; I25.10 Atherosclerotic heart disease of native coronary artery without angina pectoris; E11.9 Type 2 diabetes mellitus without complications; E78.5 Hyperlipidemia, unspecified; Z79.899 Other long term (current) drug therapy
CPT/HCPCS: 36415; 71045; 74176; 80053; 82150; 82550; 83690; 84484; 85025; 85610; 85730; 87804; 93005